=== PATIENT | female | born 1940 | race Caucasian/White ===

== ENCOUNTER 2017-08-21 09:16 | Emergency (ER) | payer MEDICARE, MEDICAID ==
[2017-08-21] MEDS: ONDANSETRON 4 MG ORAL DISINTEGRATING TAB (S0181) PO (10:18)
[2017-08-21] MEDS: NORCO, ANEXSIA 5/325MG TABLET (HYDROcodone/ACETAMINOPHEN) PO (10:18)
== END 2017-08-21 12:10 | disposition home or self-care (01) ==
LOC: M ED 09:16
DX: S40.011A Contusion of right shoulder, initial encounter (principal); S20.111A Abrasion of breast, right breast, initial encounter; S40.021A Contusion of right upper arm, initial encounter; X58.XXXA Exposure to other specified factors, initial encounter; Y92.480 Sidewalk as the place of occurrence of the external cause; Y93.9 Activity, unspecified; R91.1 Solitary pulmonary nodule; S43.101A Unspecified dislocation of right acromioclavicular joint, initial encounter; M25.711 Osteophyte, right shoulder; M25.811 Other specified joint disorders, right shoulder; E11.9 Type 2 diabetes mellitus without complications; I10 Essential (primary) hypertension; J44.9 Chronic obstructive pulmonary disease, unspecified; F17.200 Nicotine dependence, unspecified, uncomplicated; Z79.82 Long term (current) use of aspirin; Z79.84 Long term (current) use of oral hypoglycemic drugs; Z79.899 Other long term (current) drug therapy; Z88.0 Allergy status to penicillin
CPT/HCPCS: 71046

== ENCOUNTER → 2019-03-02 | Outpatient (REF) | payer MEDICARE, MEDICAID ==
[~2019-03-02] MED LIST: AMIT25TA PO; AMLO5TAB6 PO; ASPI1TAB15 PO; ATEN100T PO; ATEN100T7 PO; AZIT500T5 PO; B-122500 PO; GLIP5TAB20 PO; HYDR-3715 PO; LEVO125T4 PO; LEVO250T12 PO; LISI40TA PO; METF850T4 PO; THEO1CAP2 PO; THEO400T4 PO; XARE15TA PO
== END ==
LOC: M SFHCPLAZ 13:59
PROVIDERS: ATTEND Family Medicine
DX: E11.9 Type 2 diabetes mellitus without complications (principal); E03.9 Hypothyroidism, unspecified; I10 Essential (primary) hypertension; Z53.8 Procedure and treatment not carried out for other reasons

== ENCOUNTER 2019-04-30 17:44 | Inpatient (IN) | payer MEDICARE, MEDICAID ==
[~2019-04-30] VITALS: Ht 167.6 cm; Wt 75.7 kg
[2019-04-30] MEDS: HumaLOG INSULIN (NovoLOG) PER UNIT SC SCH (01:45)
[~2019-04-30 17:44] MED LIST changes: -AMIT25TA PO; -AMLO5TAB6 PO; -ATEN100T PO; -AZIT500T5 PO; -B-122500 PO; -LEVO250T12 PO; -THEO1CAP2 PO; -THEO400T4 PO; -XARE15TA PO
[2019-04-30] MEDS ORDERED: NS 1,000 ML IV ONE (19:45)
[2019-04-30 19:52] LABS: BASO % 0.2 % (0.0-1.0); EOS % 0.3 % (0.0-3.0); HEMATOCRIT 35.5 % (36.0-47.0); LYMPH # 1.8 10^3/uL (1.5-5.0); MEAN CORPUSCULAR HEMOGLOBIN 34.8 pg (27.0-33.0); MEAN CORPUSCULAR HGB CONC 33.8 g/dl (32.0-36.5); MEAN CORPUSCULAR VOLUME 102.9 fl (80.0-96.0); MONO # 1.3 10^3/uL (0.0-0.8); MONO % 12.7 % (0.0-5.0); NEUTROPHILS # 7.3 10^3/uL (1.5-8.5); NEUTROPHILS % 68.7 % (36.0-66.0); PLATELET COUNT, AUTOMATED 364 10^3/uL (150-450); RED BLOOD COUNT 3.45 10^6/uL (4.00-5.40); WHITE BLOOD COUNT 10.6 10^3/uL (4.0-10.0)
[2019-04-30 20:20] LABS: ALBUMIN 3.9 GM/DL (3.2-5.2); ALT/SGPT 22 U/L (12-78); BILIRUBIN,TOTAL 0.8 MG/DL (0.2-1.0); BLOOD UREA NITROGEN 37 MG/DL (7-18); CALCIUM LEVEL 9.6 MG/DL (8.8-10.2); CARBON DIOXIDE LEVEL 26 MEQ/L (21-32); CHLORIDE LEVEL 98 MEQ/L (98-107); CK-MB VALUE MASS < 1.0 NG/ML (<3.6); CPK CREATINE PHOSPHOKINASE 23 U/L (26-192); FREE T4 1.55 NG/DL (0.76-1.46); GLOMERULAR FILTRATION RATE 33.3 (>39); GLUCOSE, FASTING 131 MG/DL (70-100); MAGNESIUM LEVEL 1.9 MG/DL (1.8-2.4); MB/CK RELATIVE INDEX 4.35 (< OR =4); POTASSIUM SERUM 5.1 MEQ/L (3.5-5.1); SODIUM LEVEL 134 MEQ/L (136-145); THYROID STIMULATING HORMONE 0.909 uIU/ML (0.358-3.740); TOTAL PROTEIN 7.8 GM/DL (6.4-8.2); TROPONIN I < 0.02 NG/ML (< 0.10)
[2019-04-30 21:01] LABS: INR 1.09; PROTHROMBIN TIME 13.8 SECONDS (11.8-14.0)
[2019-04-30 21:02] LABS: PARTIAL THROMBOPLASTIN TIME 29.4 SECONDS (25.0-38.4)
--- NOTE | 2019-04-30 21:34 | ECGEPIP ---
[facility] - ED Test Date: 2019-04-30 Pat Name: APRYL CANCINO Department: Room: - Gender: Female [employer] Tender: ct : 1940 Requested By: Rohit Villalobos Order Number: [id number] Reading MD: Apryl Nelson Measurements Intervals [place] Rate: 62 P: 48 KS: 155 QRS: 5 QRSD: 91 T: 73 QT: 400 QTc: 408 Interpretive Statements SINUS RHYTHM NSTTW abnormalities NO PRIOR Electronically Signed on 04-30-2019 21:34:26 EDT by Apryl Nelson
[2019-04-30] MEDS ORDERED: ISOVUE-370 76% 100ML VIAL (Q9967) As Ordered ONE (21:45)
--- NOTE | 2019-04-30 22:29 | REPVR ---
PROCEDURE INFORMATION: Exam: CT Chest With Contrast Exam date and time: 04/30/2019 10:05 PM Clinical history: 79 years old, female; Abnormal findings; Abnormal radiologic exam of lung or chest; Additional info: F/u on lung mass TECHNIQUE: Imaging protocol: Computed tomography of the chest with intravenous contrast. 3D rendering: MIP reconstructed images were created and reviewed. Radiation optimization: All CT scans at this facility use at least one of these dose optimization techniques: automated exposure control; mA and/or kV adjustment per patient size (includes targeted exams where dose is matched to clinical indication); or iterative reconstruction. Contrast material: ISOVUE 370; Contrast volume: 75 ml; Contrast route: IV; COMPARISON: CR Chest, 2 view PA, Lat 04/30/2019 7:46 PM FINDINGS: Lungs: There is a large mass in the left lower lobe superior segment extending from the posterior pleural surface to the hilum, measuring 4.7 x 7.6 x 4.0 cm. Subcarinal katherin mass measures approximately 5.6 x 2.9 cm. Pleural space: Unremarkable. No pneumothorax. No pleural effusion. Heart: Unremarkable. No cardiomegaly. No pericardial effusion. Mediastinum: Multiple mediastinal lymph nodes. Pulmonary arteries: The left lung mass encases the right lower lobe pulmonary artery causing a near occlusive stenosis of the vessel. Aorta: Unremarkable. No aortic aneurysm. Lymph nodes: Extensive mediastinal and and bilateral hilar adenopathy. The largest superior mediastinal lymph node on the right measures 4.0 cm. Multiple additional pretracheal lymph nodes. Largest right hilar node measures 2.2 cm. The pulmonary mass is not clearly separable from many of the left hilar nodes. Bones/joints: Unremarkable. No acute fracture. Soft tissues: Irregular 1.6 x 1.7 cm mass in the left breast at 3-4:00, 4 cm from the nipple. IMPRESSION: 1. Large left lower lobe mass with extensive mediastinal and hilar adenopathy. 2. Lung mass encases the left lower lobe primary artery causing near complete occlusion of the vessel. 3. Incidental mass in the left breast is nonspecific. Consider correlation with diagnostic mammogram and breast ultrasound. Electronically signed by: Akash Caballero On 04/30/2019 22:28:49 PM
[2019-05-01 00:45] VITALS: BP 146/62
--- NOTE | 2019-05-01 00:55 | HPEPDOC ---
[facility] Medical History & Physical Date of Admission May 01, 2019 Date of Service: May 01, 2019 Primary Care Physician: SIRI CHAUDHARY DO Attending Physician: ALECIA SANTORO MD History and Physical CHIEF COMPLAINT: Dizziness HISTORY OF PRESENT ILLNESS: This is a 79-year-old female who presents with several months of ongoing fatigue, dizziness, weakness, nausea and vomiting. She has also had an ache in February of last year following upper URI, a raspy voice, without dysphonia, or dysphagia. She also noticed that she had the inability to taste food which led to her decline in appetite, a decline in fluid intake, and according to her a 15 pound weight loss since March. She also admits to ongoing productive cough during this time period, chills, and night sweats. After her ears were irrigated and cleaned out in the ED,she started feeling slightly better. She was also given fluids in the ED due to dehydration. ROS CONSTITUTIONAL: No fevers, denies chills, denies weight loss, denies lethargy HEENT: No rhinorrhea, no itchy eyes, no congesion, CARDIOVASCULAR: No murmurs no palpitations and arrhythmias RESPIRATORY: Not cough, No SOB, no issues to report GASTROINTESTINAL: No nausea, no vomiting, no difficulty swallowing, no pain with eating, no diarrhea HEMATOLOGICAL: No bleeding GENITOURINARY:No Issues HEMATOLOGIC/LYMPHATIC: No swelling PAST MEDICAL HISTORY: Hypothyroidism, jbs-xypvvxx-jzsrqkexg diabetes, hypertension, chronic tobacco use, PAST SURGICAL HISTORY: Right arm fracture, left arm pressure, hysterectomy at age 28, regular.. SOCIAL HISTORY: Lives by herself, reports smoking 1-2 pack of cigarettes per day since the age of 15. Denies alcohol use, denies any drug use. FAMILY HISTORY: Noncontributory. Due to his end-stage ALLERGIES: Please see below. PE VITALS: See Below GENERAL APPEARANCE: Alert no acute distress. Irritated 3 SKIN: Warm, well perfused ENT: Tympanic membrane difficult to visualize due to excessive wax, no erythema noted, no purulent drainage, no pain on tragus LUNGS: Clear to auscultation bilaterally. HEART: Normal S1, S2. No murmurs, no rubs, no gallops ABDOMEN: Soft. No masses. Bowel sounds are present EXTREMITIES: Moves all extremities equally. No gross deformities. PULSES: 2+ upper and lower extremity LABORATORY DATA: See below. IMAGING: Chest Xray: "Mass versus pneumonia in left lower" CT of the chest: "IMPRESSION: 1. Large left lower lobe mass with extensive mediastinal and hilar adenopathy. 2. Lung mass encases the left lower lobe primary artery causing near complete occlusion of the vessel. 3. Incidental mass in the left breast is nonspecific. Consider correlation with diagnostic mammogram and breast ultrasound" MICROBIOLOGY: Please see below. ASSESSMENT/PLAN: This is 69-year-old female with a past medical history of hypothyroidism, jnn-dhzrvby-eavisrens diabetes, chronic hypertension, and tobacco use, who will be admitted for evaluation of dizziness / near syncope. 1. Dizziness / Near syncopal episode -likely due to dehydration in the setting of decreased poor appetite, -Orthostatics negative -continue with IVF -PT, OT for weakness 2. Acute on chronic kidney injury stage 3 -Hold lisinopril & metformin due to kidney injury -IV fluids 3.Pulmonary mass -Differential diagnosis include adenocarcinoma, squamous cell carcinoma, unlikely to be TB -supplemental O2 -she will require a bronchoscopy and biopsy the day time team can decide if pulm consult is warranted this admission 4.Incidental breast mass -Can follow up as outpatient with mammogram 5.Chronic Hypertension -Currently holding lisinopril 6.Diabetes -Hold metformin & glipizide -monitor fasting blood glucose with before meals and at bedtime coverage 7.Hypothyroidism -Continue home medication 8.Ear Pain -Unlikely to be infectious, we'll continue to monitor. 9. Tobacco Abuse -Reported an extensive smoking history -Smoking cessation provided smoking cessation provided DVT prophylaxis with Lovenox Vital Signs Vital Signs Date Time Temp Pulse Resp B/P (MAP) Pulse Ox O2 Delivery O2 Flow Rate FiO2 04/30/19 22:05 97.7 73 18 124/65 (84) 98 Room Air Laboratory Data Labs 24H Laboratory Tests 2 04/30/19 19:23: Urine Color [place], Urine Appearance HAZY, Urine pH 5.0, Urine Specific [place] 1.021, Urine Protein 1+H, Urine Glucose (UA) NEGATIVE, Urine Ketones NEGATIVE, Urine Blood 1+H, Urine Nitrite NEGATIVE, Urine Bilirubin 1+H, Urine Urobilinogen 4.0H, Urine Leukocyte Esterase TRACEH, Urine WBC (Auto) 4H, Urine RBC (Auto) 11H, Urine Hyaline Casts (Auto) 25, Urine Bacteria (Auto) NEGATIVE, Urine Sq uamous Epithelial Cells 5, Urine Transitional Epithelial Cells 1, Urine Mucus (Auto) SMALL, Urine Sperm (Auto) 04/30/19 19:25: Prothrombin Time 13.8, Prothromb Time International Ratio 1.09, Activated Partial Thromboplast Time 29.4 04/30/19 19:30: Immature Granulocyte % (Auto) 1.1, Neutrophils (%) (Auto) 68.7H, Lymphocytes (%) (Auto) 17.0L, Monocytes (%) (Auto) 12.7H, Eosinophils (%) (Auto) 0.3, Basophils (%) (Auto) 0.2, Neutrophils # (Auto) 7.3, Lymphocytes # (Auto) 1.8, Monocytes # (Auto) 1.3H, Eosinophils # (Auto) 0.0, Basophils # (Auto) 0.0, Nucleated Red Blood Cells % (auto) 0.0, Anion Gap 10, Glomerular Filtration Rate 33.3L, Calcium Level 9.6, Magnesium Level 1.9, Total Bilirubin 0.8, Aspartate Amino Transf (AST/SGOT) 38H, Alanine Aminotransferase (ALT/SGPT) 22, Alkaline Phosphatase 85, Total Creatine Kinase 23L, Creatine Kinase MB < 1.0, Creatine Kinase MB Relative Index 4.35H, Troponin I < 0.02, Total Protein 7.8, Albumin 3.9, Albumin/Globulin Ratio 1.00, Thyroid Stimulating Hormone (TSH) 0.909, Free Thyroxine 1.55H CBC/BMP Laboratory Tests 04/30/19 19:30 Microbiology Microbiology 04/30/19 Urine Culture, Received Pending Home Medications Scheduled Atenolol/Chlorthalidone (Atenolol-Chlorthalidone 100-25) 1 Tab Tab, 1 TAB PO SIXTO LY Glipizide (Glipizide ER) 5 Mg Tab, 5 MG PO DAILY Levothyroxine Sodium (Levothyroxine Sodium) 125 Mcg Tab, 125 MCG PO DAILY Lisinopril (Lisinopril) 40 Mg Tab, 40 MG PO DAILY Metformin HCl (Metformin HCl) 850 Mg Tab, 850 MG PO BID Allergies Coded Allergies: Penicillins (Verified Allergy, Unknown, 04/30/19) and cross reactors lizy (Verified Allergy, Unknown, 04/30/19) spice, very ill with swelling A-FIB/CHADSVASC A-FIB History Current/History of A-Fib/PAF?: No Age/Risk Factor Scoring CHADSVASC: CHADSVASC Response (Comments) Value Age Risk Factor Age 65-74 years old 1 Hx of CHF No 0 Hx of HTN Yes 1 Hx of Diabetes Yes 1 Total 3 GME ATTESTATION GME ATTESTATION My faculty preceptor for this patient encounter was physically present during the encounter and was fully available. All aspects of the patient interview, examination, medical decision making process, and medical care plan development were reviewed and approved by the faculty preceptor. The faculty preceptor is aware and concurs with the plan as stated in the body of this note and will attest to such by his/her cosignature. ATTENDING NOTE I examined Mr. Lindsay 11:30 PM and discussed case with Dr. Oseguera and carmine jason with his findings as documented above. 1 Acute Renal Failure likely prerenal azotemia /dehydration due to poor appetite Plan: Is/Os, daily weights / Renal diet / f/u ulytes for FENa or FEUrea, renal US, IVF 2. Lung mass. Possibly due to pneumonia versus cancer. Plan: Follow up CT of the chest. 3. Abnormal UA Patient is asymptomatic. Plan: Will not treat asymptomatic bacteria MARICHUY OSEGUERA DO Apr 30, 2019 23:31 ALECIA SANTORO MD May 01, 2019 00:55
[2019-05-01] MEDS ORDERED: GLUCOSE 4 GM CHEW TABLET PO PRN (01:00)
[2019-05-01] MEDS ORDERED: GLUCAGON FOR INJ 1 MG VIAL (J1610) SC PRN (01:00)
[2019-05-01] MEDS ORDERED: NS 1,000 ML IV SCH (01:00)
[2019-05-01] MEDS ORDERED: DEXTROSE 50% 50 ML SYRINGE IV PRN (01:00)
[2019-05-01 06:00] VITALS: BP 155/75
[2019-05-01 07:16] LABS: HEMOGLOBIN A1c 5.9 %
[2019-05-01 07:25] LABS: ALBUMIN 3.1 GM/DL (3.2-5.2); BILIRUBIN,TOTAL 0.6 MG/DL (0.2-1.0); CREATININE FOR GFR 1.02 MG/DL (0.55-1.30); GLOMERULAR FILTRATION RATE 55.9 (>39); POTASSIUM SERUM 3.8 MEQ/L (3.5-5.1); TOTAL PROTEIN 7.3 GM/DL (6.4-8.2)
[2019-05-01] MEDS: HumaLOG INSULIN (NovoLOG) PER UNIT SC SCH ×4 (07:30→20:49)
[2019-05-01] MEDS: LEVOTHYROXINE 125MCG TABLET (0.125MG) PO SCH (08:04)
[2019-05-01] MEDS: ENOXAPARIN 30 MG/0.3 ML SYR (J1650) SC SCH (08:04)
[2019-05-01] MEDS: glipiZIDE XL 5 MG TABCR PO SCH (08:04)
--- NOTE | 2019-05-01 08:05 | REP ---
CHEST, TWO VIEWS: Two views of the chest are performed and compared with prior study of 08/21/2017. Masslike consolidation is seen in the left upper lobe having a diameter of approximately 5 cm. I suspect adjacent left hilar adenopathy. There is widening of the mediastinum compatible with mediastinal adenopathy. The heart is normal in size. There are degenerative changes of the spine. IMPRESSION: Mass or consolidation left upper lobe with a diameter of approximately 5 cm. There appears to be adjacent left hilar adenopathy as well as mediastinal adenopathy. Electronically Signed by Gary Rudd MD 05/01/2019 03:40 P
[2019-05-01] MEDS: ATENOLOL 50 MG TAB PO SCH (08:06)
--- NOTE | 2019-05-01 11:05 | IPNPDOC ---
Subjective Date Seen The patient was seen on 05/01/19. Subjective Chief Complaint/HPI Says feels better this morning. Her appetite is better and said she is going to order breakfast, no dizziness or light headedness. I discussed with the pateint about the CT scan findings that she has lung cancer and will need a biopsy of the mass to find out what kind it is so we will need to do a biopsy with dayron mass next week. No fever or chills, says has chronic cough. No hemoptysis. Has been a heavy smoker for any years. Objective Physical Examination General Exam: Positive: Alert, Cooperative, No Acute Distress Eye Exam: Positive: PERRLA, Conjunctiva & lids normal, EOMI; Negative: Sclera icteric ENT Exam: Positive: Atraumatic, Mucous membr. moist/pink, Pharynx Normal Neck Exam: Positive: Supple; Negative: JVD, thyromegaly Chest Exam: Positive: Clear to auscultation, Normal air movement Heart Exam: Positive: Rate Normal, Regular Rhythm, Normal S1, Normal S2; Negative: Murmurs, Rubs Abdomen Exam: Positive: Normal bowel sounds, Soft; Negative: Tenderness, Hepatospenomegaly Extremity Exam: Positive: Normal pulses; Negative: Clubbing, Cyanosis, Edema Skin Exam: Positive: Nl turgor and temperature; Negative: Rash, Breakdown Assessment /Plan Assessment A 69-year-old female presents with vague complaints of dizziness, weakness, nausea, vomiting, presyncopal episodes, 15 pound weight loss, decreased appetite, for about 2 months. She was found to have dehydration, acute on chronic kidney injury and a lung mass/ consolidation on CXR. On CT chest there was a Large left lower lobe mass with extensive mediastinal and hilar adenopathy. Lung mass encases the left lower lobe primary artery causing near complete occlusion of the vessel. Incidental mass in the left breast is nonspecific. Radiologist suggested mammography. Presyncopal episodes probably due to dehydration ? Lobar pulmonary vascular occlusion causing any episodes of hypoxia or not. Lung mass looks malignant with encroachment of left lower lobe primary pulmonary artery with near occlusion of the vessel with hilar lymphadenopathy will arrange for CT guided biopsy next week. will also get CT abdomen and pelvis with contrast for staging purposes said last smoked 2 weeks ago. will consult cancer navigation nurse. Incidental breast mass will need follow up TIMA due to poor oral intake and dehydration improved with hydration. Hold lisinopril due to kidney injury, hold metformin due to kidney injury Hypertension will continue atenolol Currently holding lisinopril and chlorthalidone Diabetes Hold metformin due to kidney injury, fasting blood glucose with before meals and at bedtime coverage continue glipizide Hypothyroidism Continue home medication Weakness and dizziness. PT, OT Plan/VTE VTE Prophylaxis Ordered?: Yes VS, I&O, 24H, Fishbone Vital Signs/I&O Vital Signs Date Time Temp Pulse Resp B/P (MAP) Pulse Ox O2 Delivery O2 Flow Rate FiO2 05/01/19 08:06 68 155/73 05/01/19 06:00 97.4 18 99 Room Air I&O- Last 24 Hours up to 6 AM 05/01/19 06:00 Intake Total 1120 ml Output Total 500 ml Balance 620 ml Laboratory Data 24H LABS Laboratory Tests 2 04/30/19 19:23: Urine Color [place], Urine Appearance HAZY, Urine pH 5.0, Urine Specific [place] 1.021, Urine Protein 1+H, Urine Glucose (UA) NEGATIVE, Urine Ketones NEGATIVE, Urine Blood 1+H, Urine Nitrite NEGATIVE, Urine Bilirubin 1+H, Urine Urobilinogen 4.0H, Urine Leukocyte Esterase TRACEH, Urine WBC (Auto) 4H, Urine RBC (Auto) 11H, Urine Hyaline Casts (Auto) 25, Urine Bacteria (Auto) NEGATIVE, Urine [place] us Epithelial Cells 5, Urine Transitional Epithelial Cells 1, Urine Mucus (Auto) SMALL, Urine Sperm (Auto) 04/30/19 19:25: Prothrombin Time 13.8, Prothromb Time International Ratio 1.09, Activated Partial Thromboplast Time 29.4 04/30/19 19:30: Immature Granulocyte % (Auto) 1.1, Neutrophils (%) (Auto) 68.7H, Lymphocytes (%) (Auto) 17.0L, Monocytes (%) (Auto) 12.7H, Eosinophils (%) (Auto) 0.3, Basophils (%) (Auto) 0.2, Neutrophils # (Auto) 7.3, Lymphocytes # (Auto) 1.8, Monocytes # (Auto) 1.3H, Eosinophils # (Auto) 0.0, Basophils # (Auto) 0.0, Nucleated Red Blood Cells % (auto) 0.0, Anion Gap 10, Glomerular Filtration Rate 33.3L, Calcium Level 9.6, Magnesium Level 1.9, Total Bilirubin 0.8, Aspartate Amino Transf (AST/SGOT) 38H, Alanine Aminotransferase (ALT/SGPT) 22, Alkaline Phosphatase 85, Total Creatine Kinase 23L, Creatine Kinase MB < 1.0, Creatine Kinase MB Relative Index 4.35H, Troponin I < 0.02, Total Protein 7.8, Albumin 3.9, Albumin/Globulin Ratio 1.00, Thyroid Stimulating Hormone (TSH) 0.909, Free Thyroxine 1.55H 05/01/19 06:35: Anion Gap 6L, Glomerular Filtration Rate 55.9, Calcium Level 9.0, Total Bilirubi n 0.6, Aspartate Amino Transf (AST/SGOT) 37, Alanine Aminotransferase (ALT/SGPT) 19, Alkaline Phosphatase 77, Total Protein 7.3, Albumin 3.1#L, Albumin/Globulin Ratio 0.74L, Estimated Mean Plasma Glucose 123H, Hemoglobin A1c 5.9 CBC/BMP Laboratory Tests 04/30/19 19:30 05/01/19 06:35 Microbiology Microbiology 04/30/19 Urine Culture, Received Pending MADDY BARRERA MD May 01, 2019 11:05
[2019-05-01 14:00] VITALS: BP 119/61
[2019-05-01 22:00] VITALS: BP 125/65
[2019-05-02 06:00] VITALS: BP 124/60
[2019-05-02 06:30] LABS: BASO % 0.4 % (0.0-1.0); EOS # 0.2 10^3/uL (0.0-0.5); EOS % 1.9 % (0.0-3.0); HEMATOCRIT 33.3 % (36.0-47.0); HEMOGLOBIN 11.1 g/dl (12.0-15.5); LYMPH # 2.6 10^3/uL (1.5-5.0); LYMPH % 28.2 % (24.0-44.0); MEAN CORPUSCULAR HEMOGLOBIN 34.2 pg (27.0-33.0); MEAN CORPUSCULAR HGB CONC 33.3 g/dl (32.0-36.5); MEAN CORPUSCULAR VOLUME 102.5 fl (80.0-96.0); MONO # 1.2 10^3/uL (0.0-0.8); MONO % 13.1 % (0.0-5.0); NEUTROPHILS # 5.1 10^3/uL (1.5-8.5); NEUTROPHILS % 55.5 % (36.0-66.0); PLATELET COUNT, AUTOMATED 326 10^3/uL (150-450); RED BLOOD COUNT 3.25 10^6/uL (4.00-5.40); WHITE BLOOD COUNT 9.1 10^3/uL (4.0-10.0)
[2019-05-02 06:53] LABS: BLOOD UREA NITROGEN 20 MG/DL (7-18); CALCIUM LEVEL 9.3 MG/DL (8.8-10.2); CARBON DIOXIDE LEVEL 28 MEQ/L (21-32); CHLORIDE LEVEL 102 MEQ/L (98-107); CREATININE FOR GFR 0.87 MG/DL (0.55-1.30); GLOMERULAR FILTRATION RATE > 60.0 (>39); GLUCOSE, FASTING 133 MG/DL (70-100); SODIUM LEVEL 137 MEQ/L (136-145)
[2019-05-02] MEDS: HumaLOG INSULIN (NovoLOG) PER UNIT SC SCH ×4 (08:07→20:45)
[2019-05-02] MEDS: ENOXAPARIN 30 MG/0.3 ML SYR (J1650) SC SCH (08:08)
[2019-05-02] MEDS: glipiZIDE XL 5 MG TABCR PO SCH (08:08)
[2019-05-02] MEDS: LEVOTHYROXINE 125MCG TABLET (0.125MG) PO SCH (08:08)
[2019-05-02] MEDS: ATENOLOL 50 MG TAB PO SCH (08:16)
--- NOTE | 2019-05-02 08:39 | IPNPDOC ---
Subjective Date Seen The patient was seen on 05/02/19. Subjective Chief Complaint/HPI Feeling much better this morning. good appetite, wants to go home. Said she would prefer to do the biopsy as an outpatient. No fever r chills, no chest pain or SOB. COntinues to complain of right blocked ear and partial blocking also on the left. Objective Physical Examination General Exam: Positive: Alert, Cooperative, No Acute Distress Eye Exam: Positive: PERRLA, Conjunctiva & lids normal, EOMI; Negative: Sclera icteric ENT Exam: Positive: Atraumatic, Mucous membr. moist/pink, Pharynx Normal Neck Exam: Positive: Supple; Negative: JVD, thyromegaly Chest Exam: Positive: Clear to auscultation, Normal air movement Heart Exam: Positive: Rate Normal, Regular Rhythm, Normal S1, Normal S2; Negative: Murmurs, Rubs Abdomen Exam: Positive: Normal bowel sounds, Soft; Negative: Tenderness, Hepatospenomegaly Extremity Exam: Positive: Normal pulses; Negative: Clubbing, Cyanosis, Edema Skin Exam: Positive: Nl turgor and temperature; Negative: Rash, Breakdown Assessment /Plan Assessment A 69-year-old female presents with vague complaints of dizziness, weakness, nausea, vomiting, presyncopal episodes, 15 pound weight loss, decreased appetite, for about 2 months. She was found to have dehydration, acute on chronic kidney injury and a lung mass/ consolidation on CXR. On CT chest there was a Large left lower lobe mass with extensive mediastinal and hilar adenopathy. Lung mass encases the left lower lobe primary artery causing near complete occlusion of the vessel. Incidental mass in the left breast is nonspecific. Radiologist suggested mammography. Presyncopal episodes probably due to dehydration ? Lobar pulmonary vascular occlusion causing any episodes of hypoxia or not. Lung mass looks malignant with encroachment of left lower lobe primary pulmonary artery with near occlusion of the vessel with hilar lymphadenopathy will arrange for CT guided biopsy next week. will also get CT abdomen and pelvis with contrast for staging purposes said last smoked 2 weeks ago. will consult cancer navigation nurse. Incidental breast mass will need follow up TIMA due to poor oral intake and dehydration improved with hydration. Hold lisinopril due to kidney injury, hold metformin due to kidney injury Hypertension will continue atenolol Currently holding lisinopril and chlorthalidone Diabetes Hold metformin due to kidney injury, fasting blood glucose with before meals and at bedtime coverage continue glipizide Hypothyroidism Continue home medication Weakness and dizziness. PT, OT Plan/VTE VTE Prophylaxis Ordered?: Yes VS, I&O, 24H, Fishbone Vital Signs/I&O Vital Signs Date Time Temp Pulse Resp B/P (MAP) Pulse Ox O2 Delivery O2 Flow Rate FiO2 05/02/19 08:16 76 128/68 05/02/19 06:00 97.8 18 97 Room Air I&O- Last 24 Hours up to 6 AM 05/02/19 06:00 Intake Total 1380 ml Output Total 1650 ml Balance -270 ml Laboratory Data 24H LABS Laboratory Tests 2 05/01/19 11:40: Bedside Glucose (Misc Panel) 146H 05/01/19 16:31: Bedside Glucose (Misc Panel) 98 05/01/19 20:47: Bedside Glucose (Misc Panel) 168H 05/02/19 05:51: Immature Granulocyte % (Auto) 0.9, Neutrophils (%) (Auto) 55.5, Lymphocytes (%) (Auto) 28.2, Monocytes (%) (Auto) 13.1H, Eosinophils (%) (Auto) 1.9, Basophils (%) (Auto) 0.4, Neutrophils # (Auto) 5.1, Lymphocytes # (Auto) 2.6, Monocytes # (Auto) 1.2H, Eosinophils # (Auto) 0.2, Basophils # (Auto) 0.0, Nucleated Red Blood Cells % (auto) 0.0, Anion Gap 7L, Glomerular Filtration Rate > 60.0, Calcium Level 9.3 CBC/BMP Laboratory Tests 05/02/19 05:51 Microbiology Microbiology 04/30/19 Urine Culture - Final, Complete Klebsiella Pneumoniae MADDY BARRERA MD May 02, 2019 08:39
[2019-05-02] MEDS: GASTROGRAFIN SOLUTION 30ML PO SCH (10:05)
[2019-05-02] MEDS ORDERED: ISOVUE-370 76% 100ML VIAL (Q9967) As Ordered ONE (11:45)
--- NOTE | 2019-05-02 13:26 | REP ---
CT ABDOMEN AND PELVIS WITH IV AND ORAL CONTRAST: TECHNIQUE: Axial contrast enhanced images from the lung bases to the pubic symphysis using 100 mL Isovue 370 intravenous contrast material with multiplanar reformations. Visualized lung bases are clear. Liver demonstrates no mass. Gallbladder is unremarkable. Spleen is normal in size with no intrinsic abnormality. No adrenal mass is seen. Pancreas demonstrates no mass. There is no biliary dilatation. There is no hydronephrosis bilaterally. There is an exophytic nodule of the lower pole of left kidney medially measuring 2.1 cm in diameter. Density measurements are greater than that of water, but it does appear to be cystic. Recommend ultrasound to further evaluate. There are moderate atherosclerotic calcifications of the abdominal aorta without aneurysm. No enlarged lymph nodes are seen in the abdomen or pelvis. No bowel wall thickening is seen. There is sigmoid diverticulosis without acute diverticulitis. The appendix is normal. No pelvic mass is seen. The patient appears to have had a hysterectomy. Urinary bladder is mildly distended and grossly unremarkable. There are diffuse degenerative changes of the spine with degenerative changes also noted of the hips. IMPRESSION: No adenopathy. No liver or adrenal mass. There is a low density cystic nodule in the lower pole of the left kidney. I would recommend further evaluation by ultrasound to confirm this does indeed represent a simple cyst. Otherwise no evidence of metastatic disease in the abdomen or pelvis. Electronically Signed by Gary Rudd MD 05/02/2019 02:39 P
[2019-05-02 14:09] VITALS: BP 138/64
[2019-05-02 22:00] VITALS: BP 140/66
[2019-05-03 06:00] VITALS: BP 133/69
[2019-05-03 06:27] LABS: BASO % 0.5 % (0.0-1.0); EOS # 0.1 10^3/uL (0.0-0.5); HEMATOCRIT 30.8 % (36.0-47.0); HEMOGLOBIN 10.6 g/dl (12.0-15.5); LYMPH # 1.8 10^3/uL (1.5-5.0); LYMPH % 20.8 % (24.0-44.0); MEAN CORPUSCULAR HEMOGLOBIN 35.3 pg (27.0-33.0); MEAN CORPUSCULAR HGB CONC 34.4 g/dl (32.0-36.5); MEAN CORPUSCULAR VOLUME 102.7 fl (80.0-96.0); MONO # 1.4 10^3/uL (0.0-0.8); MONO % 15.9 % (0.0-5.0); NEUTROPHILS # 5.3 10^3/uL (1.5-8.5); PLATELET COUNT, AUTOMATED 279 10^3/uL (150-450); WHITE BLOOD COUNT 8.7 10^3/uL (4.0-10.0)
[2019-05-03 06:50] LABS: BLOOD UREA NITROGEN 14 MG/DL (7-18); CALCIUM LEVEL 8.9 MG/DL (8.8-10.2); CARBON DIOXIDE LEVEL 26 MEQ/L (21-32); CHLORIDE LEVEL 99 MEQ/L (98-107); CREATININE FOR GFR 0.92 MG/DL (0.55-1.30); GLOMERULAR FILTRATION RATE > 60.0 (>39); GLUCOSE, FASTING 177 MG/DL (70-100); POTASSIUM SERUM 3.8 MEQ/L (3.5-5.1); SODIUM LEVEL 134 MEQ/L (136-145)
[2019-05-03 07:47] VITALS: BP 133/69
[2019-05-03] MEDS: LEVOTHYROXINE 125MCG TABLET (0.125MG) PO SCH (07:47)
[2019-05-03] MEDS: ENOXAPARIN 30 MG/0.3 ML SYR (J1650) SC SCH (07:47)
[2019-05-03] MEDS: glipiZIDE XL 5 MG TABCR PO SCH (07:47)
[2019-05-03] MEDS: ATENOLOL 50 MG TAB PO SCH (07:47)
[2019-05-03] MEDS: HumaLOG INSULIN (NovoLOG) PER UNIT SC SCH ×2 (07:48→12:16)
--- NOTE | 2019-05-03 10:50 | DS.PDOC ---
Discharge Summary General Date of Admission Apr 30, 2019 at 21:34 Date of Discharge 05/03/19 Discharge Summary PROCEDURES PERFORMED DURING STAY: [None]. DISCHARGE DIAGNOSES: Malignant Lung mass scheduled for Biopsy. Impacted wax Tima Dehydration. Breast mass needs mammography Diabetes Hypertension Hypothyroid. COMPLICATIONS/CHIEF COMPLAINT: Tima (Acute Kidney Injury),Lung Mass. HISTORY OF PRESENT ILLNESS: See history and physical HOSPITAL COURSE: A 69-year-old female presents with vague complaints of dizziness, weakness, nausea, vomiting, presyncopal episodes, 15 pound weight loss, decreased appetite, for about 2 months. She was found to have dehydration, acute on chronic kidney injury and a lung mass/ consolidation on CXR. On CT chest there was a Large left lower lobe mass with extensive mediastinal and hilar adenopathy. Lung mass encases the left lower lobe primary artery causing near complete occlusion of the vessel. Incidental mass in the left breast is nonspecific. Radiologist suggested mammography. Presyncopal episodes probably due to dehydration ? Lobar pulmonary vascular occlusion causing any episodes of hypoxia or not. Lung mass looks malignant with encroachment of left lower lobe primary pulmonary artery with near occlusion of the vessel with hilar lymphadenopathy CT guided biopsy set up for 05/12/19 CT abdomen and pelvis with contrast negative said last smoked 2 weeks ago. consulted cancer navigation nurse. Incidental breast mass will need follow up mammography TIMA due to poor oral intake and dehydration on the back ground of lisinopril and metformin. improved with hydration. Hold lisinopril and metformin. due to kidney injury Hypertension will continue atenolol Currently stopped lisinopril and chlorthalidone Can be restarted in a week if needed at the pMDs discretion. Diabetes continue glipizide Hold metformin for 2 days before restarting as had contrast studies in hospital. Hypothyroidism Continue home medication Impacted wax bilateral irrigated int ED and seen by ENT. Weakness and dizziness. improved. DISCHARGE MEDICATIONS: Please see below. ALLERGIES: Please see below. PHYSICAL EXAMINATION ON DISCHARGE: VITAL SIGNS: Please see below. General Exam: Positive: Alert, Cooperative, No Acute Distress Eye Exam: Positive: PERRLA, Conjunctiva & lids normal, EOMI; Negative: Sclera icteric ENT Exam: Positive: Atraumatic, Mucous membr. moist/pink, Pharynx Normal Neck Exam: Positive: Supple; Negative: JVD, thyromegaly Chest Exam: Positive: Clear to auscultation, Normal air movement Heart Exam: Positive: Rate Normal, Regular Rhythm, Normal S1, Normal S2; Negative: Murmurs, Rubs Abdomen Exam: Positive: Normal bowel sounds, Soft; Negative: Tenderness, Hepatospenomegaly Extremity Exam: Positive: Normal pulses; Negative: Clubbing, Cyanosis, Edema Skin Exam: Positive: Nl turgor and temperature; Negative: Rash, Breakdown LABORATORY DATA: Please see below. ACTIVITY: [As tolerated]. DIET: Carb consistent DISCHARGE PLAN: Home DISPOSITION: . DISCHARGE INSTRUCTIONS: PMD in [address] guided left lung mass biopsy on 05/12/19 Needs referral for mammography. DISCHARGE CONDITION: [Stable]. TIME SPENT ON DISCHARGE: 35 minutes. Vital Signs/I&Os Vital Signs Date Time Temp Pulse Resp B/P (MAP) Pulse Ox O2 Delivery O2 Flow Rate FiO2 05/03/19 07:47 75 133/69 05/03/19 06:00 98.3 20 94 Room Air I&O- Last 24 Hours up to 6 AM 05/03/19 06:00 Intake Total 1680 ml Output Total 2700 ml Balance -1020 ml Laboratory Data Labs 24H Laboratory Tests 2 05/02/19 12:33: Bedside Glucose (Misc Panel) 230H 05/02/19 16:51: Bedside Glucose (Misc Panel) 125H 05/02/19 19:58: Bedside Glucose (Misc Panel) 153H 05/03/19 05:44: Immature Granulocyte % (Auto) 0.8, Neutrophils (%) (Auto) 61.0, Lymphocytes (%) (Auto) 20.8L, Monocytes (%) (Auto) 15.9H, Eosinophils (%) (Auto) 1.0, Basophils (%) (Auto) 0.5, Neutrophils # (Auto) 5.3, Lymphocytes # (Auto) 1.8, Monocytes # (Auto) 1.4H, Eosinophils # (Auto) 0.1, Basophils # (Auto) 0.0, Nucleated Red Blood Cells % (auto) 0.0, Anion Gap 9, Glomerular Filtration Rate > 60.0, Calcium Level 8.9 CBC/BMP Laboratory Tests 05/03/19 05:44 FSBS Laboratory Tests Test 05/02/19 12:33 05/02/19 16:51 05/02/19 19:58 Range/Units Bedside Glucose (Misc Panel) 230 125 153 83-110 MG/DL Microbiology Microbiology 04/30/19 Urine Culture - Final, Complete Klebsiella Pneumoniae Discharge Medications Scheduled Atenolol/Chlorthalidone (Atenolol-Chlorthalidone 100-25) 1 Tab Tab, 1 TAB PO DAILY, (Reported) Glipizide (Glipizide ER) 5 Mg Tab, 5 MG PO DAILY, (Reported) Levothyroxine Sodium (Levothyroxine Sodium) 125 Mcg Tab, 125 MCG PO DAILY, (Reported) Lisinopril (Lisinopril) 40 Mg Tab, 40 MG PO DAILY, (Reported) Metformin HCl (Metformin HCl) 850 Mg Tab, 850 MG PO BID, (Reported) Allergies Coded Allergies: Penicillins (Verified Allergy, Unknown, 04/30/19) and cross reactors lizy (Verified Allergy, Unknown, 04/30/19) spice, very ill with swelling MADDY BARRERA MD May 03, 2019 10:50
[2019-05-03] MEDS ORDERED: ATEN100T PO (12:06)
== END 2019-05-03 13:20 | disposition home or self-care (01) | DRG 684 ==
LOC: M ED 17:44 → M ED INP 21:34 → M MS5PR 05-01 00:42
PROVIDERS: ADMIT Internal Medicine; ATTEND Internal Medicine Nephrology
DX: N17.9 Acute kidney failure, unspecified (principal); E86.0 Dehydration; R91.8 Other nonspecific abnormal finding of lung field; N18.3 Chronic kidney disease, stage 3 (moderate); I12.9 Hypertensive chronic kidney disease with stage 1 through stage 4 chronic kidney disease, or unspecified chronic kidney disease; E03.9 Hypothyroidism, unspecified; E11.9 Type 2 diabetes mellitus without complications; N63.20 Unspecified lump in the left breast, unspecified quadrant; H61.23 Impacted cerumen, bilateral; Z79.899 Other long term (current) drug therapy; Z88.0 Allergy status to penicillin

== ENCOUNTER 2019-05-07 11:37 | Emergency (ER) | payer MEDICARE, MEDICAID ==
[~2019-05-07] VITALS: Ht 170.2 cm; Wt 75.9 kg
[~2019-05-07 11:37] MED LIST changes: +ATEN100T PO
[2019-05-07 12:06] LABS: BASO # 0.1 10^3/uL (0.0-0.2); BASO % 0.6 % (0.0-1.0); EOS # 0.1 10^3/uL (0.0-0.5); EOS % 0.8 % (0.0-3.0); HEMATOCRIT 30.9 % (36.0-47.0); HEMOGLOBIN 10.3 g/dl (12.0-15.5); LYMPH # 1.4 10^3/uL (1.5-5.0); LYMPH % 16.4 % (24.0-44.0); MEAN CORPUSCULAR HEMOGLOBIN 35.3 pg (27.0-33.0); MEAN CORPUSCULAR HGB CONC 33.3 g/dl (32.0-36.5); MEAN CORPUSCULAR VOLUME 105.8 fl (80.0-96.0); MONO # 1.1 10^3/uL (0.0-0.8); MONO % 13.2 % (0.0-5.0); NEUTROPHILS # 5.9 10^3/uL (1.5-8.5); NEUTROPHILS % 67.8 % (36.0-66.0); PLATELET COUNT, AUTOMATED 352 10^3/uL (150-450); RED BLOOD COUNT 2.92 10^6/uL (4.00-5.40); WHITE BLOOD COUNT 8.6 10^3/uL (4.0-10.0)
--- NOTE | 2019-05-07 12:19 | REP ---
CT brain: 05/07/2019. Indication: Syncope. Comparison: 12/15/2010. Technique: Unenhanced axial CT images of the brain were obtained from skull base to vertex. Findings: There is no acute intracranial hemorrhage, acute cortical infarction, mass effect, hydrocephalus or acute calvarial fracture. Small air fluid levels are noted within the left sphenoid sinus. Small left mastoid effusion is present. Impression: No acute intracranial process. Electronically Signed by Milo Tam DO 05/07/2019 12:11 P
[2019-05-07 12:44] LABS: BLOOD UREA NITROGEN 17 MG/DL (7-18); CARBON DIOXIDE LEVEL 25 MEQ/L (21-32); CHLORIDE LEVEL 103 MEQ/L (98-107); CK-MB VALUE MASS < 1.0 NG/ML (<3.6); CPK CREATINE PHOSPHOKINASE 28 U/L (26-192); CREATININE FOR GFR 1.04 MG/DL (0.55-1.30); GLOMERULAR FILTRATION RATE 54.7 (>39); GLUCOSE, FASTING 131 MG/DL (70-100); MB/CK RELATIVE INDEX 3.57 (< OR =4); POTASSIUM SERUM 4.5 MEQ/L (3.5-5.1); SODIUM LEVEL 136 MEQ/L (136-145); TROPONIN I < 0.02 NG/ML (< 0.10)
[2019-05-07] MEDS ORDERED: ISOVUE-370 76% 100ML VIAL (Q9967) As Ordered ONE (13:09)
--- NOTE | 2019-05-07 13:42 | REP ---
Clinical: Lung mass. Chest pain and syncope. Technique: Axial contrast enhanced images from the thoracic inlet to the upper abdomen with multiplanar re-formations using pulmonary embolus technique. 100 ml Isovue 370 intravenous contrast material administered without complication. Comparison: 04/30/2019. Findings: Satisfactory enhancement of the pulmonary vasculature is achieved. The large mass emanating from the left hilum into the left mid lung zone causes mass effect and encases portions of the left lower lobe pulmonary artery causing near complete collapse. No obvious pulmonary embolus is identified. Large mass extends to the subpleural left mid/upper lung zone and extensive mediastinal and hilar adenopathy is again identified and unchanged. Differential diagnosis includes lymphoma as well as primary lung carcinoma. No effusion. No obvious satellite lesions. The right hemithorax is relatively well aerated although right hilar adenopathy is identified. Thoracic aorta is without aneurysm or dissection and without significant mass effect. No cardiomegaly or pericardial effusion. Osseous structures demonstrate degenerative changes without focal abnormality. Impression: 1. Known large left lung mass extending from the hilum to the subpleural midlung zone along with extensive diffuse mediastinal and hilar adenopathy (left greater than right). Differential diagnosis includes lymphoma and primary lung carcinoma. Findings are unchanged from recent prior examination. 2. The second order left lower lobe pulmonary artery is nearly completely collapsed due to surrounding encasement from neoplasm/adenopathy but demonstrates satisfactory distal enhancement and there is no obvious pulmonary embolus. Electronically Signed by Avtar Hobbs MD 05/07/2019 01:34 P
[2019-05-07 14:41] VITALS: BP 131/95
--- NOTE | 2019-05-09 11:37 | ECGEPIP ---
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
== END 2019-05-07 14:45 | disposition home or self-care (01) ==
LOC: EDBD 11:37 → M ED 11:37
DX: R55 Syncope and collapse (principal); I28.8 Other diseases of pulmonary vessels; R91.8 Other nonspecific abnormal finding of lung field; R00.1 Bradycardia, unspecified; E11.9 Type 2 diabetes mellitus without complications; I10 Essential (primary) hypertension; J44.9 Chronic obstructive pulmonary disease, unspecified; F17.210 Nicotine dependence, cigarettes, uncomplicated; Z88.0 Allergy status to penicillin; Z91.018 Allergy to other foods; Z79.4 Long term (current) use of insulin; Z79.899 Other long term (current) drug therapy

== ENCOUNTER 2019-05-09 11:34 | Inpatient (IN) | payer MEDICARE, MEDICAID ==
[~2019-05-09] VITALS: Ht 170.2 cm; Wt 78.5 kg
--- NOTE | 2019-05-09 12:03 | ECGEPIP ---
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
--- NOTE | 2019-05-09 12:55 | REP ---
Clinical: Syncope. Technique: PA and lateral. Comparison: 04/30/2019. Findings: Mediastinum and cardiac silhouette are stable. Mass in the left mid lung zone is unchanged. Remainder of lung vigil are essentially well-aerated and clear. No effusion. No pneumothorax. Skeletal structures stable. Impression: Stable chest x-ray. Stable mass in the left mid lung zone. No new acute process Electronically Signed by Avtar Hobbs MD 05/09/2019 12:46 P
[2019-05-09 13:06] LABS: BASO % 0.5 % (0.0-1.0); EOS # 0.1 10^3/uL (0.0-0.5); EOS % 1.8 % (0.0-3.0); HEMATOCRIT 29.4 % (36.0-47.0); HEMOGLOBIN 9.7 g/dl (12.0-15.5); LYMPH # 1.6 10^3/uL (1.5-5.0); LYMPH % 20.7 % (24.0-44.0); MEAN CORPUSCULAR HEMOGLOBIN 34.6 pg (27.0-33.0); MONO # 0.7 10^3/uL (0.0-0.8); MONO % 8.9 % (0.0-5.0); NEUTROPHILS # 5.3 10^3/uL (1.5-8.5); NEUTROPHILS % 67.2 % (36.0-66.0); PLATELET COUNT, AUTOMATED 357 10^3/uL (150-450); WHITE BLOOD COUNT 7.8 10^3/uL (4.0-10.0)
[2019-05-09] MEDS ORDERED: NS 500 ML IV ONE (13:15)
[2019-05-09 13:23] LABS: INR 1.1; PROTHROMBIN TIME 13.9 SECONDS (11.8-14.0)
[2019-05-09 13:24] LABS: PARTIAL THROMBOPLASTIN TIME 29.8 SECONDS (25.0-38.4)
[2019-05-09 13:41] LABS: BLOOD UREA NITROGEN 17 MG/DL (7-18); CALCIUM LEVEL 8.6 MG/DL (8.8-10.2); CARBON DIOXIDE LEVEL 28 MEQ/L (21-32); CHLORIDE LEVEL 105 MEQ/L (98-107); CK-MB VALUE MASS < 1.0 NG/ML (<3.6); CPK CREATINE PHOSPHOKINASE 69 U/L (26-192); CREATININE FOR GFR 0.89 MG/DL (0.55-1.30); FREE T4 1.68 NG/DL (0.76-1.46); GLOMERULAR FILTRATION RATE > 60.0 (>39); GLUCOSE, FASTING 163 MG/DL (70-100); MAGNESIUM LEVEL 1.9 MG/DL (1.8-2.4); MB/CK RELATIVE INDEX 1.45 (< OR =4); POTASSIUM SERUM 5.3 MEQ/L (3.5-5.1); SODIUM LEVEL 140 MEQ/L (136-145); THYROID STIMULATING HORMONE 0.807 uIU/ML (0.358-3.740); TROPONIN I < 0.02 NG/ML (< 0.10)
[2019-05-09] MEDS ORDERED: ATEN100T PO (14:18)
[2019-05-09] MEDS ORDERED: DEXTROSE 50% 50 ML SYRINGE IV PRN (15:00)
[2019-05-09] MEDS ORDERED: GLUCAGON FOR INJ 1 MG VIAL (J1610) SC PRN (15:00)
[2019-05-09] MEDS ORDERED: GLUCOSE 4 GM CHEW TABLET PO PRN (15:00)
[2019-05-09] MEDS ORDERED: ACETAMINOPHEN 500 MG TAB PO PRN (15:15)
[2019-05-09] MEDS: amLODIPine 5 MG TAB PO SCH (15:27)
--- NOTE | 2019-05-09 15:31 | HPE ---
DATE OF ADMISSION: 05/09/2019 PRIMARY CARE PROVIDER: Rose Corral DO at [facility] CHIEF COMPLAINT: Recurrent syncope. HISTORY: Apryl Lindsay is a 79-year-old patient of Dr. Castillo. She has had recurrent syncope for the last 2 weeks. She was just hospitalized 05/01/2019 to 05/03/2019 for acute kidney injury, presented with weakness, dizziness, nausea, vomiting, and presyncopal spells, was found recently to have a large, left lung mass which will be described further below, with an outpatient biopsy scheduled for 05/12/2019. She presents again after having several episodes of syncope today at rest without preceding palpitations, lightheadedness, or other symptoms. Denies any chest pain. She has had no fall or injury from this. The most recent syncopal event occurred when she was just sitting at the kitchen table, where she found herself passed out for an unspecified period of time. She has a large left lung mass. This was recently discovered when she presented to the residency clinic 04/30/[address] Mccracken for hoarseness. Ordered a chest x-ray and a CT of the chest. She had noted that the patient lost 17 pounds, documented on the office scales between 03/02/2019 and 04/30/2019. This is an involuntary weight loss. The patient has a long smoking history and has recently become hoarse. CT scan of the chest showed a large mass left lower lobe superior segment ascending from the posterior pleural surface up to the hilum. Extensive mediastinal and bilateral hilar adenopathy. The mass encases a left lower lobe primary artery causing near complete occlusion of the vessel. Nonspecific incidental mass was found in the left breast as well. She had a CT angiogram on 05/07/2019 that showed a known mass. They noted the second order left lower lobe pulmonary artery was nearly completely collapsed due to surrounding encasement but had satisfactory distal enhancement. The patient's past medical history shows hypothyroidism, type 2 diabetes under excellent control, last hemoglobin A1c 5.8%, hypertensive heart disease, long smoking history. SURGICAL HISTORY: Right arm fracture, left arm fracture, hysterectomy, age 28, right knee surgery. MEDICATIONS: - atenolol - chlorthalidone 100-25 one daily - lisinopril 40 mg daily - amlodipine 5 mg daily - levothyroxine 125 mcg daily - metformin 850 mg twice a day - glipizide 5 mg daily ALLERGIES: PENICILLIN and lizy. SOCIAL HISTORY: She is a lifelong smoker, started as a teenager, quit 03/2019. No alcohol. Lives by herself. REVIEW OF SYSTEMS: Unexplained weight loss as above. No hemoptysis. No pleuritic pain. No fever or chills. No polyuria or polydipsia. PHYSICAL EXAMINATION: Vital signs: Blood pressure was 165/77, pulse 65, respiratory rate 18, 98% oxygen saturation on room air, afebrile. General appearance: Alert, conversant, in no distress. She is forceful when she speaks. Pupils are equal, round, reactive to light. Tympanic membranes (TMs) and oropharynx benign. Neck: No masses. Lungs: Decreased breath sounds left side compared to the right. Heart: Regular rhythm, no murmur. Abdomen: Soft, nontender, no masses. Extremities: Without clubbing, cyanosis, or edema. Normal and equal strength, reflexes, sensation. I did not test her gait. LABORATORY DATA: Electrolytes unremarkable. White count 7.8, hemoglobin 9.7, previous hemoglobin was 10.3. MCV is 105. Platelets 357. TSH normal. Free T4 1.68. TSH was just tested 2 days ago so it is reassuring that it is solidly within normal range over that 48 hour interval. Recent urine culture 04/30/2019 showed Klebsiella. IMPRESSION: 1. Recurrent syncope. It seems though it would have to be related to the lung mass perhaps causing vasopressor syncope or an arrhythmia. She will be admitted to a telemetry bed. I have ordered cardiac enzymes. Echocardiogram has been ordered. Consultation will be placed for thoracic surgery as well as pulmonology. Patient has a biopsy scheduled for 05/12/2019. 2. Macrocytic anemia. Check B12, folate, and free kappa/lambda light chains and flow cytometry. Possibility of lymphoma is present. 3. Type 2 diabetes. Hold her metformin and glipizide for now. Sliding scale insulin with coverage based upon protocol. Her diabetes is under excellent control. She will probably not need to continue coverage for long after admission. 4. Hypertensive heart disease. Continue her current amlodipine 5 mg daily, atenolol-chlorthalidone 100-25 daily. Hold her lisinopril as she recently had acute kidney injury. 5. Hypothyroidism. Continue current dose of levothyroxine. Case has been discussed with Dr. Andres Salmeron and communicated with Dr. Patino as well.
[2019-05-09 16:55] VITALS: BP 180/80
[2019-05-09] MEDS ORDERED: SLF 3 ML SYR IV PRN (17:00)
[2019-05-09] MEDS: HumaLOG INSULIN (NovoLOG) PER UNIT SC SCH ×2 (17:30→20:33)
--- NOTE | 2019-05-09 18:50 | HPE ---
DATE OF ADMISSION: 05/09/2019 ADDENDUM: Code status was discussed. Patient is a FULL CODE. Deep venous thrombosis (DVT) prophylaxis will be provided with mechanical sequential thromboembolitic deterrents (TEDs). I am avoiding pharmacologic anticoagulant at this point, as the patient might end up getting a lung biopsy tomorrow and she is at high risk of hemoptysis exsanguination due to location of the lung mass. I think it would be most prudent to use mechanical DVT prophylaxis.
[2019-05-09] MEDS ORDERED: amLODIPine 5 MG TAB PO ONE (19:00)
[2019-05-09 20:00] VITALS: BP 141/67
[2019-05-09 21:38] LABS: CK-MB VALUE MASS < 1.0 NG/ML (<3.6); CPK CREATINE PHOSPHOKINASE 28 U/L (26-192); MB/CK RELATIVE INDEX 3.57 (< OR =4); TROPONIN I < 0.02 NG/ML (< 0.10)
[2019-05-09] MEDS: SLF 3 ML SYR IV SCH (22:14)
[2019-05-10] VITALS (14 sets, daily range): BP systolic 72–154; BP diastolic 48–87
[2019-05-10 05:34] LABS: HEMATOCRIT 28.9 % (36.0-47.0); HEMOGLOBIN 9.5 g/dl (12.0-15.5); MEAN CORPUSCULAR HEMOGLOBIN 34.1 pg (27.0-33.0); MEAN CORPUSCULAR HGB CONC 32.9 g/dl (32.0-36.5); MEAN CORPUSCULAR VOLUME 103.6 fl (80.0-96.0); PLATELET COUNT, AUTOMATED 373 10^3/uL (150-450); RED BLOOD COUNT 2.79 10^6/uL (4.00-5.40); WHITE BLOOD COUNT 8.4 10^3/uL (4.0-10.0)
[2019-05-10 06:06] LABS: BLOOD UREA NITROGEN 13 MG/DL (7-18); CALCIUM LEVEL 8.8 MG/DL (8.8-10.2); CARBON DIOXIDE LEVEL 27 MEQ/L (21-32); CHLORIDE LEVEL 107 MEQ/L (98-107); CK-MB VALUE MASS < 1.0 NG/ML (<3.6); CPK CREATINE PHOSPHOKINASE 26 U/L (26-192); CREATININE FOR GFR 0.81 MG/DL (0.55-1.30); GLOMERULAR FILTRATION RATE > 60.0 (>39); GLUCOSE, FASTING 97 MG/DL (70-100); MB/CK RELATIVE INDEX 3.85 (< OR =4); POTASSIUM SERUM 4.5 MEQ/L (3.5-5.1); SODIUM LEVEL 141 MEQ/L (136-145); TROPONIN I < 0.02 NG/ML (< 0.10)
[2019-05-10] MEDS: LEVOTHYROXINE 125MCG TABLET (0.125MG) PO SCH (06:07)
[2019-05-10] MEDS: SLF 3 ML SYR IV SCH ×3 (06:07→21:21)
--- NOTE | 2019-05-10 07:10 | CR ---
DATE OF CONSULTATION: 05/09/2019 Miss Lindsay is seen at the request of Dr. Zarate for a lung mass and mediastinal lymphadenopathy along with syncope. HISTORY OF PRESENT ILLNESS: This patient is a 79-year-old white female whose story starts about last February when she developed an upper respiratory tract infection manifested by rhinorrhea and a cough. She did not have fever or chills at that time. The rhinorrhea subsided, the cough persisted and got worse. She produces clear to white sputum. There is no hemoptysis. Throughout the course she has never had any fever, chills or sweats. She also denies chest pain or chest discomfort. She has noticed over the past two months that her voice is getting more hoarse. She states that since February she has lost 50 pounds. She just has not had an appetite. There is no true dysphagia. About a week and a half ago she started to have near fainting spells. She has been in and out of the hospital now twice for syncope. Today she was sitting in a chair after having gone downstairs to visit her neighbor and she all of the sudden felt hot and faint and states that she passed out transiently in the chair. She woke up with nausea and vomiting. It gradually subsided but she again sought medical treatment here. She has undergone a CT angio on 05/07/[address] on 04/30/2019. I will discuss the CT angio under imaging. Nonetheless, it shows a large left sided mass with a large amount of mediastinal lymphadenopathy plus possible cardiac findings. PAST MEDICAL HISTORY: Hypertension. Hypothyroidism. Diabetes. PAST SURGICAL HISTORY: Hysterectomy in the remote past. MEDICATIONS AT HOME: - atenolol 100 mg daily - glipizide 5 mg daily - Synthroid 125 mcg daily - metformin 850 mg by mouth twice a day HABITS: She is a smoker of one pack per day for many years. [place] She does not imbibe alcohol and there are no illicit drugs. 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 TRAVEL HISTORY: She has been to [place], but not to the [facility]. There is no foreign travel. FAMILY HISTORY: Not pertinent to the acute situation. ALLERGIES: 1. PENICILLIN. REVIEW OF SYSTEMS: CONSTITUTIONAL: See HPI, the above significant weight loss. I have indeed actually confirmed with her that she meant 50 and not 15. EYES: Without diplopia. Does wear glasses for driving. Without amaurosis fugax or prior jaundice. NOSE: Without epistaxis. MOUTH: Has her own teeth. PULMONARY: See HPI. CARDIAC: Without tachycardia or palpitations. Without prior myocardial infarctions or intermittent claudication, or peripheral edema. Without orthopnea, without paroxysmal nocturnal dyspnea (PND). GASTROINTESTINAL (GI): Except with her nausea and vomiting today just after her near syncopal spell, no episodes. No diarrhea, constipation. No melena, hematochezia or hematemesis. No abdominal pain. No dysphagia. GENITOURINARY (): Without dysuria, hematuria or prior renal stones. ENDOCRINE: With diabetes and hypothyroidism. NEUROLOGIC: Without paresthesia, paralyses, prior CVAs or seizures. PSYCHIATRIC: Without pathological, anxieties, depressions or psychoses. HEMATOLOGICAL: Without prolonged bleeding times. PHYSICAL EXAMINATION: Well-developed, well-nourished, overweight white female who continually coughs bringing up sputum. Vital signs: Temperature is 98.3 with a heart rate of 68 and in sinus rhythm, respiratory rate of 22, without the use of accessory muscles, who is 98% saturated in room air, blood pressure is 180/80. Head is normocephalic. Eyes shows pupils equal, round, and reactive to light. Extraocular muscles intact. Sclerae nonicteric. Nose without deformity. Mouth shows his mucous membranes to be pink and moist. Lips and commissures are without lesions. Teeth are in good repair. There is no thrush. Neck is supple. There is no jugular venous distention. No subcutaneous emphysema. Trachea is midline. I feel no lymphadenopathy or thyromegaly. She has 2+ carotid upstrokes without bruits. Lungs show equal breath sounds on either side. I hear no wheezes, rhonchi or rales. Percussion note is full to the diaphragm. Cardiac exam does not show any murmurs, clicks, gallops or rubs. I cannot feel her point of maximum impulse (PMI). S1 and S2 are normal. I specifically listened for murmur of aortic stenosis or subaortic stenosis and I could not hear one. Abdomen is soft and nontender. Bowel sounds are positive. There is no hepatomegaly. No costovertebral angle (CVA) tenderness. There are no renal bruits. Extremities still show 1+ pretibial edema with no calf tenderness. No differential swelling of the upper extremities. Skin is warm, dry and perfused without cyanosis or mottling including that of the nail beds and knees. Neurologic shows II-XII intact along with gross motor and gross sensation intact. Gait is not tested. Psychiatric showed her to be awake, alert and oriented times three with appropriate and affect and conversational. Lymphatics show no cervical, supraclavicular or infraclavicular or axillary lymphadenopathy. Pulses show 2+ dorsalis pedis that I can feel through her socks. INVESTIGATIONS: Her white count was 7.8 with a hemoglobin and hematocrit of 9.7 and 29.4, which has been slightly going down from 12.0 and 35.5 on 04/30/2019. It was also noted at that time that she was dehydrated and she was rehydrated. Platelet count is 357 with a differential that shows 67% neutrophils, 20% lymphocytes, 8% monocytes. There are no immature forms, no toxic granulations. Her electrolytes are normal except for a potassium of 5.3 with a BUN and creatinine of 17 and 0.89. On 04/30, her creatinine was 1.6 prior to rehydration with a BUN of 37. Her glucose was 163 with a calcium of 8.6 and a corresponding albumin done on 05/01 of 3.1. AST and ALT were essentially normal on 04/30. Her EKG shows nonspecific ST wave changes. There is no hypertrophy and there are no acute changes. Her CT angio today does not show a pulmonary embolism. She has a large left sided mass extending into the hilum and almost completely constricting the left lower pulmonary artery. There is some reconstitution distally. The mass extends to the chest wall. It does not have an absolute wedge configuration, but it does look as if she has segmental obstruction. She has subcarinal mediastinal lymphadenopathy and very large paratracheal lymphadenopathy on both the right and left. She has paraaortic lymphadenopathy and AP window lymphadenopathy. There is one density that I cannot explain very well in her left ventricle. I can see the outflow tract of the left ventricle and it looks as though this extra tissue is impinging on the outflow tract. I am wondering if this is representing hypertrophic subaortic stenosis, thus causing her syncope. Right ventricle does show some enlargement and she may have a degree of pulmonary hypertension. The inferior vena cava looks on the large size. Her let adrenal has a normal configuration. I may be able to see her right adrenal in the lowest two transverse segments. I do not see liver lesions in that portion of the liver that is visualized on the chest CT. She does not have a pericardial effusion. She looks to have a normal pancreas and a normal spleen. IMPRESSION: 1. Large left sided lower lobe mass encasing the left lower lobe pulmonary artery. 2. Significant and impressive mediastinal lymphadenopathy both paratracheally and subcarinally, also para-aortic. 3. Syncope unknown origin. 4. Possible aortic outflow tract obstruction secondary to subaortic hypertrophy. 5. Diabetes. 6. Hypertension. 7. Hypothyroidism. PLAN AND DISCUSSION: We need to absolutely make a diagnosis. She was scheduled for a needle biopsy on this Friday and I will order one for tomorrow to move up the diagnostic speed. I am probably over interpreting the CT scan, but I do have a suspicion of subaortic hypertrophy and I will also order an echocardiogram as one has not been done. It should be noted that her EKG does not show generalized precordial high voltages, but subaortic hypertrophy can certainly come without EKG evidence of hypertrophy. Alternatively, her syncope can be associated with near occlusion of the pulmonary artery with increased right ventricular pressures and decreased cardiac output. Edited 05/10/2019 @ 0726 [email or web address]
[2019-05-10] MEDS: HumaLOG INSULIN (NovoLOG) PER UNIT SC SCH ×4 (07:30→21:00)
[2019-05-10] MEDS: amLODIPine 5 MG TAB PO SCH (08:52)
[2019-05-10] MEDS ORDERED: ATENOLOL 50 MG TAB PO SCH (09:00)
--- NOTE | 2019-05-10 10:01 | IPN ---
DATE: 05/10/2019 Apryl was seen in progressive care unit (PCU). Appreciate Dr. Salmeron's seeing her last night. CT guided needle biopsy is planned for today. She has no fever, chills, hemoptysis. She has no recurrent syncope. There has been no arrhythmias. PHYSICAL EXAMINATION: Vital signs stable. Blood pressure 143/87, afebrile. 90% oxygen saturation. HEENT: Unremarkable. She is hoarse. Neck: No masses. Lungs: Decreased breath sounds on the left. Heart: Regular rhythm. No murmur. Abdomen: Soft, nontender to masses. No peripheral edema. Normal strength in the arms and legs. LABS: White count 8.4, hemoglobin 9.5, which is stable. Platelets are 373. Sodium 141, potassium 4.5, BUN 13, creatinine 0.8, glucose 97. IMPRESSION: 1. Recurrent syncope I think is probably related to the lung mass. Agree with Dr. Salmeron. 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 She has had no recurrence. There has been no arrhythmias. Will continue telemetry for now. 2. Left lung mass. CT-guided biopsy today. She is not on pharmacologic deep venous thrombosis (DVT) prophylaxis because I am concerned about the risk of massive hemoptysis. 3. Hypertensive heart disease: Continue amlodipine, atenolol. Hold her diuretic and angiotensin converting enzyme inhibitors (KELLEE) inhibitor for now. 4. Diabetes: Her diabetes is under excellent control at home on metformin and glipizide. She is currently on a sliding scale requiring no coverage. If she still is without the need for insulin coverage by tomorrow, I would recommend discontinuing the fingersticks and the coverage. 5. Macrocytic anemia: I have ordered B12, folate, free kappa lambda light chain and a flow cytometry. Ferritin iron and TIBC and reticulocyte counts pending. 6. Hypothyroidism: Continue current dose of levothyroxine. Her TSH was in the normal range.
--- NOTE | 2019-05-10 10:47 | CR ---
DATE OF CONSULTATION: 05/10/2019 ATTENDING PHYSICIAN: Kevin Zarate MD REASON FOR CONSULTATION: Abnormal CT scan. HISTORY OF PRESENT ILLNESS: Ms. Lindsay is a pleasant 79-year-old female who smoked most of her adult life. She has been having issues with hoarseness since around February. She was seen by ears, nose, and throat (ENT). Cerumen impaction was dealt with. She did not have examination of her larynx. She has had progressive difficulties with decreased appetite and weight loss, degree of about 50 pounds. She denies any dysphagia. Further evaluation by primary revealed markedly abnormal CAT scan with large left hilar mass and very impressive mediastinal hilar and peritracheal adenopathy. The mass is extended to the chest wall. She was scheduled for CT-guided needle biopsy as an outpatient. She has had four episodes of syncope, however, and is now admitted. ALLERGIES: Listed are PENICILLIN and CYNTHIA. MEDICATIONS AT HOME: - atenolol 100 mg daily - glipizide 5 mg daily - Synthroid 125 mcg daily - metformin 850 mg by mouth twice a day PAST MEDICAL HISTORY: Hypertension, hypothyroidism, and diabetes. Surgically, she has had a hysterectomy. SOCIAL HISTORY: A pack-a-day smoker for many years. Cut down significantly in March. No occupational or environmental exposure. FAMILY HISTORY: Noncontributory to her current status. REVIEW OF SYSTEMS: As per the history of present illness (HPI). Otherwise, constitutional: Negative for any fevers or chills. HEENT: Unremarkable for blurred or double vision. Pulmonary: As per HPI. Cardiac: Unremarkable for any angina. Gastrointestinal (GI): Significant for decreased appetite. Genitourinary (): Unremarkable for any dysuria or urgency. Neurological: Unremarkable for seizures or strokes. Endocrine: Significant for her diabetes and hypothyroidism. Hematological: Unremarkable for any known bleeding, dyscrasias, or anemias. Allergic and immunological: Unremarkable. Psychiatric: Unremarkable. Musculoskeletal: Unremarkable for any new arthralgias or myalgias. PHYSICAL EXAMINATION: Reveals a pleasant female, in no obvious distress. Temperature 97.9, blood pressure 146 systolic, respiratory rate about 18 and unlabored, heart rate in the 70s with a sinus mechanism. HEENT: Otherwise, generally normocephalic, atraumatic. Pupils react. Sclerae clear. Trachea is in the midline. Chest: Shows decreased breath sound intensity in the left midlung zone. Otherwise, chest is clear. Expansion is symmetric. Cardiac examination: Regular with no gallop. Peripheral pulses palpable. No obvious edema. Abdomen: Soft, nontender, with normoactive bowel sounds. No obvious organomegaly or masses. Extremities: No cyanosis or clubbing. Neurologic: She is awake, alert, and appropriate. Psychiatric: Normal mood and affect. Pulse oximetry is 96% on room air. LABORATORIES: Have all been reviewed and are in the electronic medical record (EMR). CT scan as outlined above, and I cannot at all disagree with the PA report impressions and their recommendations. At this point, I am in full agreement with CT-guided needle biopsy. This from a cardiovascular standpoint the safest, and it looks like there is clearcut tumor against the chest wall. Given its appearance, I worry more about either a lymphoma or small cell. 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 I did discuss this with the patient and her family. She stopped smoking. At some point, will get pulmonary function testing. She will clearly require treatment for whatever process we uncover. I have reviewed Dr. Salmeron's notes and certainly agree that she certainly could have primary cardiac issues as the cause of her syncope. At this point, will proceed as outlined above. I will follow while she is in the hospital and likely in the outpatient setting. Further recommendations will be made in the progress record as new information becomes available.
[2019-05-10] MEDS ORDERED: LIDOCAINE 1% MDV 20ML VIAL As Ordered ONE (11:22)
--- NOTE | 2019-05-10 12:27 | REP ---
Chest x-ray: Single view. History: Post CT guided needle biopsy procedure left lung. Comparison study: May 09, 2019. Findings: There is no evidence of pneumothorax or hydrothorax. A large left perihilar mass is seen and there is evidence of fairly bulky in mediastinal adenopathy. Old healed rib fractures are noted. Impression: No complication identified. Large left perihilar mass and bulky mediastinal lymphadenopathy. Electronically Signed by Kojo Back MD 05/10/2019 12:19 P
[2019-05-10 13:11] LABS: VITAMIN B12 LEVEL 88 PG/ML
[2019-05-10 14:14] LABS: CK-MB VALUE MASS < 1.0 NG/ML (<3.6); CPK CREATINE PHOSPHOKINASE 34 U/L (26-192); MB/CK RELATIVE INDEX 2.94 (< OR =4); TROPONIN I 0.02 NG/ML (< 0.10)
[2019-05-10 14:19] LABS: PERCENT SATURATION 28.3 % (13.2-45.0)
[2019-05-10] MEDS ORDERED: NS 1,000 ML IV ONE (14:20)
--- NOTE | 2019-05-10 14:58 | IPN ---
DATE: 05/10/2019 I was called by the floor for Apryl Lindsay who had a syncopal episode. I was called that she was bradycardic with a heart rate in the 30s, systolic pressure 78. I ordered bolus of saline over the phone and went to see her. Upon my arrival, she was pale, clammy but conversant and had systolic blood pressure of 80s. Her heart rate recovered up to 60. Systolic blood pressure william to 130s and she restored her normal mental status. I consulted Dr. Matias of cardiology. He is aware of the consultation. We discussed the case. He is aware that the patient's lung mass is currently not diagnosed. He advises starting amitriptyline as a vagolytic agent. I am also stopping her atenolol.
--- NOTE | 2019-05-10 17:33 | REP ---
CT-GUIDED LEFT LUNG BIOPSY The procedure was performed under the direct supervision of Dr. Back. The patient has a history of a left lung mass seen on a previous CT scan dated 05/07/2019. The risks and benefits of the procedure were explained to the patient and informed consent was obtained. The left lung mass was localized using CT guidance. The skin was prepped and draped in a sterile fashion. 1% lidocaine was used as a local anesthetic. Using CT guidance a 19/20 gauge coaxial needle biopsy system was inserted and advanced into the mass. Nine core biopsy samples were obtained and sent to lab. The patient tolerated the procedure well and there were no immediate complications. After the appropriate amount of monitored convalescence the patient was discharged from the department. Electronically Signed by JEANNIE Wilson 05/10/2019 02:56 P Electronically Signed by Kojo Back MD 05/10/2019 05:25 P
--- NOTE | 2019-05-10 19:53 | IPNPDOC ---
Date Seen The patient was seen on 05/10/19. Progress Note RN called me emergently to discuss prognosis with the patient. Pt had a junctional rhythm with hr in the 30's with sbp 72 at 2:20 pm, but has been stable since. Pt c/o dizziness, diaphoresis at that time, but has been stable since. After review of her case, I have determined that there is no emergent need to discuss her prognosis as the pathology report is unavailable and pending. The morning team will discuss this with her. 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 Matias temporizing measures that we can implement. He did not believe that she is a candidate for a permanent pacemaker due to her malignancy, and suggested theophylline 100 mg bid for now. VS, I&O, 24H, [facility] Vital Signs/I&O Vital Signs Date Time Temp Pulse Resp B/P (MAP) Pulse Ox O2 Delivery O2 Flow Rate FiO2 05/10/19 16:30 98 Room Air 05/10/19 16:00 99.1 68 18 137/66 (89) 2.0 I&O- Last 24 Hours up to 6 AM 05/10/19 06:00 Intake Total 740 ml Output Total 650 ml Balance 90 ml Laboratory Data 24H LABS Laboratory Tests 2 05/09/19 20:31: Bedside Glucose (Misc Panel) 137H 05/09/19 20:59: Total Creatine Kinase 28, Creatine Kinase MB < 1.0, Creatine Kinase MB Relative Index 3.57, Troponin I < 0.02 05/10/19 05:00: Total Creatine Kinase 26, Creatine Kinase MB < 1.0, Creatine Kinase MB Relative Index 3.85, Troponin I < 0.02, Nucleated Red Blood Cells % (auto) 0.0, Anion Gap 7L, Glomerular Filtration Rate > 60.0, Calcium Level 8.8 05/10/19 05:01: 05/10/19 12:43: Bedside Glucose (Misc Panel) 103 05/10/19 13:05: Reticulocyte # (auto) 50.3, Percent Reticulocyte Count 1.8H, Reticulocyte Hemoglobin Equivalent 43.3H, Iron Level 71, Total Iron Binding Capacity 251, Transferrin % Saturation 28.3, Ferritin 97, Total Creatine Kinase 34, Creatine Kinase MB < 1.0, Creatine Kinase MB Relative Index 2.94, Troponin I 0.02 05/10/19 14:17: Bedside Glucose (Misc Panel) 105 05/10/19 17:25: Bedside Glucose (Misc Panel) 167H CBC/BMP Laboratory Tests 05/10/19 05:00 MILA ROMO MD May 10, 2019 19:53
--- NOTE | 2019-05-10 20:46 | ECHO ---
DATE OF PROCEDURE: 05/10/2019 REFERRING PHYSICIAN: Dr. Amanda Fraire and Dr. Andres Salmeron INDICATION: Syncope. Height 170 cm, weight 76 kg. DIMENSIONS: IVS: 0.9 LV: 5.3 LVPW: 1.1 LA: 3.7 Aorta: 2.8 RV: 3.3 Left atrial volume index: 25 IVC: 1.3 Mitral E wave velocity: 77 A wave: 79 E prime septal: 5.6 E prime lateral: 7.5 FINDINGS: The study is of acceptable technical quality. The patient is in sinus rhythm. Left ventricle is normal size and systolic function with estimated left ventricular ejection fraction (LVEF) 60-65%. No segmental wall motion abnormalities are appreciated. Right ventricle also appears normal. Both atria appear normal. Aortic valve is minimally sclerotic but has three cusps and preserved mobility. Mitral, tricuspid and pulmonic valves appear normal. Trivial pericardial effusion is noted. Inferior vena cava is normal size. Aortic root appeared normal. Aortic arch and abdominal aorta were not well seen. Doppler interrogation: No aortic stenosis or insufficiency. Trace mitral and tricuspid insufficiency. Trace pulmonic insufficiency. Mitral inflow pattern and tissue Doppler imaging of mitral annulus revealed grade 1 diastolic dysfunction. CONCLUSIONS: 1. Study is of acceptable technical quality. 2. Normal left ventricular (LV) size and systolic function, grade 1 diastolic dysfunction. 3. No significant valvular disease. 4. Likely normal central venous pressure. 5. Unable to estimate pulmonary artery pressure but no signs to suggest pulmonary hypertension. COMMENT: Subacute bacterial endocarditis (SBE) prophylaxis is not recommended. No findings to explain syncopal event.
[2019-05-10] MEDS: THEOPHYLLINE (THEO-24) 100MG SR **CAPSULE PO SCH (21:21)
[2019-05-10] MEDS: AMITRIPTYLINE 25 MG TAB PO SCH (21:21)
--- NOTE | 2019-05-10 21:53 | ECGEPIP ---
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
[2019-05-11] VITALS: BP 144/74
[2019-05-11 04:00] VITALS: BP 160/77
[2019-05-11 05:41] LABS: HEMATOCRIT 29.2 % (36.0-47.0); HEMOGLOBIN 9.8 g/dl (12.0-15.5); MEAN CORPUSCULAR HEMOGLOBIN 34.6 pg (27.0-33.0); MEAN CORPUSCULAR HGB CONC 33.6 g/dl (32.0-36.5); MEAN CORPUSCULAR VOLUME 103.2 fl (80.0-96.0); PLATELET COUNT, AUTOMATED 343 10^3/uL (150-450); RED BLOOD COUNT 2.83 10^6/uL (4.00-5.40); WHITE BLOOD COUNT 9.2 10^3/uL (4.0-10.0)
[2019-05-11] MEDS: LEVOTHYROXINE 125MCG TABLET (0.125MG) PO SCH (06:00)
[2019-05-11] MEDS: SLF 3 ML SYR IV SCH ×3 (06:01→22:04)
[2019-05-11 06:07] LABS: BLOOD UREA NITROGEN 12 MG/DL (7-18); CALCIUM LEVEL 8.9 MG/DL (8.8-10.2); CARBON DIOXIDE LEVEL 26 MEQ/L (21-32); CHLORIDE LEVEL 107 MEQ/L (98-107); CREATININE FOR GFR 0.73 MG/DL (0.55-1.30); GLOMERULAR FILTRATION RATE > 60.0 (>39); GLUCOSE, FASTING 123 MG/DL (70-100); POTASSIUM SERUM 3.8 MEQ/L (3.5-5.1); SODIUM LEVEL 140 MEQ/L (136-145)
[2019-05-11 08:00] VITALS: BP 156/77
[2019-05-11] MEDS: THEOPHYLLINE (THEO-24) 100MG SR **CAPSULE PO SCH ×2 (08:42→21:35)
[2019-05-11] MEDS: HumaLOG INSULIN (NovoLOG) PER UNIT SC SCH ×4 (08:42→21:00)
[2019-05-11] MEDS: amLODIPine 5 MG TAB PO SCH (08:43)
[2019-05-11 12:00] VITALS: BP 140/80
[2019-05-11 16:00] VITALS: BP 128/70
--- NOTE | 2019-05-11 16:13 | IPNPDOC ---
Date Seen The patient was seen on 05/11/19. Progress Note SUBJECTIVE: 79-year-old female with past medical history diabetes, hypertension, hypothyroidism, was admitted for syncope, found to have a large left lung mass with mediastinal lymphadenopathy. She underwent CT-guided lung biopsy yesterday, preliminary reports, concerning for small cell carcinoma. Plan of care discussed with patient, she wishes to remain full code and get complete treatment, all of patient's and family's questions were answered. She has no complaints at this time, denies any shortness of breath, chest pain, nausea, vomiting, abdominal pain or diarrhea. She does continue to have a dry cough. Of note, patient had multiple episodes of bradycardia and hypotension yesterday, heart rate as low as in the 30s and SBP in the 70s, case was discussed with cardiology over the phone who recommended theophylline, no further episodes since. I also spoke with Dr. Matias from cardiology today who states that he has nothing further to offer the patient and she is not a candidate for pacemaker given her prognosis. 10 point review of system was negative except for above PHYSICAL EXAMINATION: VITAL SIGNS: Please see below. GENERAL: No distress HEENT: Normocephalic, atraumatic, moist mucous membranes NECK: Supple CARDIOVASCULAR EXAMINATION: S1, S2, no murmurs RESPIRATORY EXAMINATION: Diminished on the left side, scattered rhonchi ABDOMINAL EXAMINATION: Soft, nontender, nondistended, positive bowel sounds EXTREMITIES: Range of motion intact SKIN: No rash NEUROLOGICAL EXAMINATION: Alert and oriented 3, no focal deficits PSYCHIATRIC EXAMINATION: Calm and cooperative LABORATORY DATA, IMAGING STUDIES, MICROBIOLOGY: Please see below. Echocardiogram: Normal EF, no significant pathology identified. DVT prophylaxis ordered?: Yes ASSESSMENT AND PLAN: 79-year-old female with past medical history of hypertension, diabetes and hypothyroidism who was admitted for syncope, found to have large lung mass status post biopsy, concerning for small cell lung cancer. PROBLEMS: 1. Lung mass: . Status post CT-guided lung biopsy, preliminary report concerning for small cell lung cancer, case discussed with thoracic surgery, cardiology and oncology. Oncology to see the patient later today, possible inpatient chemotherapy. 2. Bradycardia/hypotension. Thought to be vasovagal, TTE within normal limits, case discussed with cardiology (Dr. Matias), who states the patient is not a candidate for pacemaker given her prognosis and he has nothing meaningful to add to her care at this time. Continue on telemetry monitoring, care discussed with patient and family in detail, wishes to remain full code. Continue amitriptyline and theophylline 3. Diabetes mellitus: Sliding scale insulin with fingersticks before every meal and bedtime. 3. Hypertension:. Continue Norvasc. 4. Hypothyroidism: Continue levothyroxine DVT prophylaxis: Heparin subcutaneous GI prophylaxis: Not needed VS, I&O, 24H, Fishbone Vital Signs/I&O Vital Signs Date Time Temp Pulse Resp B/P (MAP) Pulse Ox O2 Delivery O2 Flow Rate FiO2 05/11/19 12:00 97.7 83 20 140/80 (100) 96 Room Air 05/10/19 16:00 2.0 I&O- Last 24 Hours up to 6 AM 05/11/19 05:59 Intake Total 1200 ml Output Total 750 ml Balance 450 ml Laboratory Data 24H LABS Laboratory Tests 2 05/10/19 17:25: Bedside Glucose (Misc Panel) 167H 05/10/19 20:17: Bedside Glucose (Misc Panel) 203H 05/11/19 05:19: Nucleated Red Blood Cells % (auto) 0.0, Anion Gap 7L, Glomerular Filtration Rate > 60.0, Calcium Level 8.9 05/11/19 12:10: Bedside Glucose (Misc Panel) 134H CBC/BMP Laboratory Tests 05/11/19 05:19 LUCY GUERRERO MD May 11, 2019 16:13
[2019-05-11 20:00] VITALS: BP 132/71
[2019-05-11] MEDS: HEPARIN SOD (PORCINE) 5000 UNITS/ML VIAL SQ SCH (21:34)
[2019-05-11] MEDS: AMITRIPTYLINE 25 MG TAB PO SCH (21:35)
[2019-05-12] VITALS: BP 128/69
[2019-05-12 04:00] VITALS: BP 119/70
[2019-05-12 05:49] LABS: HEMATOCRIT 29.5 % (36.0-47.0); MEAN CORPUSCULAR HEMOGLOBIN 34.7 pg (27.0-33.0); MEAN CORPUSCULAR HGB CONC 33.9 g/dl (32.0-36.5); MEAN CORPUSCULAR VOLUME 102.4 fl (80.0-96.0); PLATELET COUNT, AUTOMATED 343 10^3/uL (150-450); RED BLOOD COUNT 2.88 10^6/uL (4.00-5.40); WHITE BLOOD COUNT 8.1 10^3/uL (4.0-10.0)
[2019-05-12 06:05] LABS: ALBUMIN 2.9 GM/DL (3.2-5.2); ALT/SGPT 13 U/L (12-78); BILIRUBIN,TOTAL 0.6 MG/DL (0.2-1.0); BLOOD UREA NITROGEN 12 MG/DL (7-18); CALCIUM LEVEL 8.7 MG/DL (8.8-10.2); CARBON DIOXIDE LEVEL 26 MEQ/L (21-32); CHLORIDE LEVEL 103 MEQ/L (98-107); CREATININE FOR GFR 0.77 MG/DL (0.55-1.30); GLOMERULAR FILTRATION RATE > 60.0 (>39); GLUCOSE, FASTING 161 MG/DL (70-100); MAGNESIUM LEVEL 1.5 MG/DL (1.8-2.4); PHOSPHORUS LEVEL 3.5 MG/DL (2.5-4.9); POTASSIUM SERUM 3.7 MEQ/L (3.5-5.1); SODIUM LEVEL 135 MEQ/L (136-145); TOTAL PROTEIN 7.1 GM/DL (6.4-8.2)
[2019-05-12] MEDS: SLF 3 ML SYR IV SCH ×3 (06:33→21:16)
[2019-05-12] MEDS: LEVOTHYROXINE 125MCG TABLET (0.125MG) PO SCH (06:33)
[2019-05-12 08:00] VITALS: BP 105/68
[2019-05-12] MEDS: HEPARIN SOD (PORCINE) 5000 UNITS/ML VIAL SQ SCH ×2 (09:10→21:15)
[2019-05-12] MEDS: HumaLOG INSULIN (NovoLOG) PER UNIT SC SCH ×4 (09:10→21:15)
[2019-05-12] MEDS: THEOPHYLLINE (THEO-24) 100MG SR **CAPSULE PO SCH ×2 (09:10→21:14)
[2019-05-12] MEDS: amLODIPine 5 MG TAB PO SCH (09:12)
[2019-05-12] MEDS: CYANOCOBALAMIN 1,000 MCG/ML VIAL (J3420) IM SCH (10:56)
[2019-05-12] MEDS ORDERED: ONDANSETRON 4MG/2ML VIAL (J2405) IV PRN (11:00)
[2019-05-12] MEDS ORDERED: POTASSIUM CHLORIDE 10 MEQ SR TABLET PO ONE (11:00)
[2019-05-12] MEDS: MAG SULF 1GM/100ML (MAG RUN) 1 GM in IV 1 EA IV SCH ×4 (11:21→17:48)
--- NOTE | 2019-05-12 11:53 | IPNPDOC ---
Date Seen The patient was seen on 05/12/19. Progress Note SUBJECTIVE: 79-year-old female with past medical history diabetes, hypertension, hypothyroidism, was admitted for syncope, found to have a large left lung mass with mediastinal lymphadenopathy. She underwent CT-guided lung biopsy yesterday, preliminary reports, concerning for small cell carcinoma. Plan of care discussed with patient, she wishes to remain full code and get complete treatment, all of patient's and family's questions were answered. She has no complaints at this time, denies any shortness of breath, chest pain, nausea, vomiting, abdominal pain or diarrhea. She does continue to have a dry cough. Of note, patient had multiple episodes of bradycardia and hypotension yesterday, heart rate as low as in the 30s and SBP in the 70s, case was discussed with cardiology over the phone who recommended theophylline, no further episodes since. I also spoke with Dr. Matias from cardiology today who states that he has nothing further to offer the patient and she is not a candidate for pacemaker given her prognosis. 05/12/2019 No further episodes of bradycardia, currently asymptomatic, evaluated by oncologist yesterday, plan for chemotherapy today. She denies any short of breath, chest pain, abdominal pain, diarrhea or constipation. She does report a dry cough, unchanged. 10 point review of system was negative except for above PHYSICAL EXAMINATION: VITAL SIGNS: Please see below. GENERAL: No distress HEENT: Normocephalic, atraumatic, moist mucous membranes NECK: Supple CARDIOVASCULAR EXAMINATION: S1, S2, no murmurs RESPIRATORY EXAMINATION: Diminished on the left side, scattered rhonchi ABDOMINAL EXAMINATION: Soft, nontender, nondistended, positive bowel sounds EXTREMITIES: Range of motion intact SKIN: No rash NEUROLOGICAL EXAMINATION: Alert and oriented 3, no focal deficits PSYCHIATRIC EXAMINATION: Calm and cooperative LABORATORY DATA, IMAGING STUDIES, MICROBIOLOGY: Please see below. Echocardiogram: Normal EF, no significant pathology identified. DVT prophylaxis ordered?: Yes ASSESSMENT AND PLAN: 79-year-old female with past medical history of hypertensio n, diabetes and hypothyroidism who was admitted for syncope, found to have large lung mass status post biopsy, concerning for small cell lung cancer. PROBLEMS: 1. Small cell lung cancer Oncology following, inpatient chemotherapy starting today. 2. Bradycardia/hypotension. Thought to be vasovagal, TTE within normal limits, case discussed with cardiology (Dr. Matias), who states the patient is not a candidate for pacemaker given her prognosis and he has nothing meaningful to add to her care at this time. No further episodes, continue telemetry monitoring Continue amitriptyline and theophylline 3. Diabetes mellitus: Sliding scale insulin with fingersticks before every meal and bedtime. 3. Hypertension:. Continue Norvasc. 4. Hypothyroidism: Continue levothyroxine DVT prophylaxis: Heparin subcutaneous GI prophylaxis: Not needed VS, I&O, 24H, Fishbone Vital Signs/I&O Vital Signs Date Time Temp Pulse Resp B/P (MAP) Pulse Ox O2 Delivery O2 Flow Rate FiO2 05/12/19 09:12 85 150/80 05/12/19 08:00 98.7 16 96 Room Air 05/10/19 16:00 2.0 I&O- Last 24 Hours up to 6 AM 05/12/19 06:00 Intake Total 820 ml Output Total 550 ml Balance 270 ml Laboratory Data 24H LABS Laboratory Tests 2 05/11/19 12:10: Bedside Glucose (Misc Panel) 134H 05/11/19 17:42: Bedside Glucose (Misc Panel) 110 05/11/19 19:59: Bedside Glucose (Misc Panel) 172H 05/12/19 05:18: Nucleated Red Blood Cells % (auto) 0.0, Anion Gap 6L, Glomerular Filtration Rate > 60.0, Calcium Level 8.7L, Phosphorus Level 3.5, Magnesium Level 1.5L, Total Bilirubin 0.6, Aspartate Amino Transf (AST/SGOT) 29, Alanine Aminotransferase (ALT/SGPT) 13, Alkaline Phosphatase 79, Total Protein 7.1, Albumin 2.9L, Albumin/Globulin Ratio 0.69L 05/12/19 11:24: Bedside Glucose (Misc Panel) 195H CBC/BMP Laboratory Tests 05/12/19 05:18 LUCY GUERRERO MD May 12, 2019 11:53
[2019-05-12 12:00] VITALS: BP 117/62
[2019-05-12] MEDS ORDERED: FOSAPREPITANT PERIPHERAL LINE 30 MIN INFUSION (PREMIX) IV ONE ×2 (12:00)
[2019-05-12] MEDS ORDERED: OLANZapine 10 MG PO PO ONE (12:00)
[2019-05-12] MEDS ORDERED: dexameTHASONE 10 MG IV IV ONE (12:00)
[2019-05-12] MEDS ORDERED: PALONOSETRON 250 MCG IV IV ONE (12:00)
[2019-05-12] MEDS ORDERED: FOSAPREPITANT PERIPHERAL LINE 30 MIN INFUSION IV ONE ×2 (12:00)
--- NOTE | 2019-05-12 12:22 | ONC.PHACK ---
CHEMO ADMIN CHECKLIST Order Contains Pt ID: Name, Order on Chemo Order Form?: Yes Order Form Includes ALL: Correct Tx Day, Correct Date, Correct Cycle Number Pt ID on Order form Matches: Pt ID on PHA Label Med on Chemo OrderForm Matches: PHA Label, Med Used for Preparation [facility] May 12, 2019 12:21
[2019-05-12] MEDS ORDERED: CARBOPLATIN IV ONE ×2 (13:00)
[2019-05-12] MEDS ORDERED: ETOPOSIDE IV ONE ×2 (13:40)
[2019-05-12] MEDS ORDERED: OVER IV ONE ×2 (13:40)
[2019-05-12 16:00] VITALS: BP 137/63
[2019-05-12 20:00] VITALS: BP 122/64
[2019-05-12] MEDS: AMITRIPTYLINE 25 MG TAB PO SCH (21:15)
[2019-05-13] VITALS: BP 147/72
[2019-05-13 00:06] LABS: FREE KAPPA LIGHT CHAINS SERUM 75.1 mg/L (3.3-19.4); FREE LAMBDA LIGHT CHAINS SERUM 18.3 mg/L (5.7-26.3)
[2019-05-13 04:00] VITALS: BP 128/70
[2019-05-13 05:44] LABS: HEMATOCRIT 31.4 % (36.0-47.0); HEMOGLOBIN 10.6 g/dl (12.0-15.5); MEAN CORPUSCULAR HEMOGLOBIN 34.9 pg (27.0-33.0); MEAN CORPUSCULAR HGB CONC 33.8 g/dl (32.0-36.5); MEAN CORPUSCULAR VOLUME 103.3 fl (80.0-96.0); PLATELET COUNT, AUTOMATED 381 10^3/uL (150-450); RED BLOOD COUNT 3.04 10^6/uL (4.00-5.40); WHITE BLOOD COUNT 8.7 10^3/uL (4.0-10.0)
[2019-05-13] MEDS: LEVOTHYROXINE 125MCG TABLET (0.125MG) PO SCH (05:48)
[2019-05-13] MEDS: SLF 3 ML SYR IV SCH ×3 (05:49→21:12)
[2019-05-13 06:14] LABS: CALCIUM LEVEL 9.5 MG/DL (8.8-10.2); CREATININE FOR GFR 0.99 MG/DL (0.55-1.30); GLOMERULAR FILTRATION RATE 57.9 (>39); MAGNESIUM LEVEL 2.6 MG/DL (1.8-2.4); POTASSIUM SERUM 4.8 MEQ/L (3.5-5.1)
[2019-05-13 08:00] VITALS: BP 132/75
[2019-05-13] MEDS: CYANOCOBALAMIN 1,000 MCG/ML VIAL (J3420) IM SCH (08:23)
[2019-05-13] MEDS: HEPARIN SOD (PORCINE) 5000 UNITS/ML VIAL SQ SCH ×2 (08:23→20:34)
[2019-05-13] MEDS: THEOPHYLLINE (THEO-24) 100MG SR **CAPSULE PO SCH ×2 (08:24→20:34)
[2019-05-13] MEDS: HumaLOG INSULIN (NovoLOG) PER UNIT SC SCH ×4 (08:24→20:23)
[2019-05-13] MEDS: amLODIPine 5 MG TAB PO SCH (08:24)
[2019-05-13 12:00] VITALS: BP 141/72
[2019-05-13] MEDS ORDERED: ETOPOSIDE IV ONE ×2 (14:00)
[2019-05-13] MEDS ORDERED: OVER IV ONE ×2 (14:00)
--- NOTE | 2019-05-13 14:10 | ONC.PHACK ---
CHEMO ADMIN CHECKLIST Order Contains Pt ID: Name, Order on Chemo Order Form?: Yes Order Form Includes ALL: Correct Tx Day, Correct Date, Correct Cycle Number Pt ID on Order form Matches: Pt ID on PHA Label Med on Chemo OrderForm Matches: PHA Label, Med Used for Preparation [facility] May 13, 2019 14:09
[2019-05-13 16:00] VITALS: BP 138/63
--- NOTE | 2019-05-13 17:54 | IPN ---
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 CURRENT THERAPY: Carboplatin/etoposide. Today is day #2, cycle 1. Plan is to complete 3 days of chemotherapy followed by granulocyte colony-stimulating factor (G-CSF) support. A cycle is 21 days. Therefore, treatment typically repeated every 21 days with a total plan for 4-6 cycles. INTERVAL HISTORY: Apryl has tolerated treatment so far very well. She has no complaints tonight and says she is feeling fine. She is insistent she would like to go home soon. I counseled her it may be [place] for her to remain in the hospital for observation during the next few days when she may begin to have side effects related to the chemotherapy. These side effects can include myelosuppression, a general overwhelming fatigue. VITAL SIGNS: Temperature 97.7, blood pressure 138/63, heart rate 89, respiratory rate 20, oxygen saturation 98% on room air. CBC: WBC 8.7, hemoglobin 10.6, hematocrit 31, platelets 381. Chemistries notable for creatinine 19, GFR 57, glucose 237, magnesium slightly high 2.6, albumin 2.9 on yesterday's labs. IMPRESSION: Bulky limited stage small cell lung carcinoma in a non-radiation candidate, day #2, cycle 1 carboplatin/etoposide. Clinical goals are shrinking tumor, possibly controlling the junctional rhythm which may or may not be associated with this patient's cancer, improving breathing, and prolonging life. The patient's daughter, Monica Adams, called me and I had a long conversation with her today. She is the patient's health care proxy, she says, and has many concerns about the patient's treatment. I answered all of her questions to her apparent satisfaction relating to the purpose of chemotherapy, the duration, the number of cycles, what to expect. I counseled there is no hard and fast rule; the patient can decide she would like to discontinue chemotherapy at any point. I clarified that to be curative, chemotherapy must be given in conjunction with radiation for limited stage disease; however, even for limited stage disease with radiation, the cure rate is low and in a 79-year-old woman with other comorbidities palliating with chemotherapy, that non-curative treatment is reasonable. I clarified that current treatment is targeting short-term improvement of both breathing and possibly cardiac status and preventing rapid evolution of potential asphyxiation and/or superior vena cava (SVC) syndrome with untreated central mediastinal bulky adenopathy and large left-sided mass. Monica's concerns appeared to allayed, but she says she wants to keep talking to her mother about goals of care and whether or not to continue in the intermediate run. This is very reasonable. At the bedside, Apryl, however, is quite cheerful, insisting she would like to go home soon. I cautioned her observation may be the best approach in the next few days. She agreed she would consider it. IMPRESSION: Bulky left lung small cell carcinoma with bulky mediastinal adenopathy in the setting of junctional rhythm leading to syncopal events. Day #2, cycle 1 carboplatin/etoposide without immunotherapy or radiation as short-term salvage treatment for symptomatic bulky disease. ECOG performance status currently 2-3. PLAN: 1. Day #3 treatment will be tomorrow. Because of access issues, there is discussion of peripherally inserted central catheter (PICC) placement. MediPort placement could be complicated by the patient's junctional rhythm. 2. The patient is written for either Neulasta to be given on day #4 as an outpatient or filgrastim (Neupogen) to be given daily during persistent inpatient stay days #4 through #14. Should she discharge before that time, she can followup early in our office early next week and received an additional needed G-CSF. 3. As a precaution, tumor lysis labs could be drawn daily. These include uric acid, potassium, phosphorus, and calcium. 3. Also as a precaution, allopurinol could be started 300 mg by mouth daily. This would be a precaution as this patient is not at high risk for tumor lysis syndrome but given age, bulkiness of tumor, it is also not unreasonable to prophylax. I will be out of town as of this evening into Friday evening and returning on Friday. Dr. Deyanira Pelayo and Dr. Eduardo Barron will be sharing call over the next 3 days. They are aware of this patient. MEDICAL ONCOLOGY INPATIENT ADDENDUM NOTE: In my earlier note this evening, I recommended starting allopurinol. There is, however, a significant, severe drug interaction between theophylline, which the patient is on as a rhythm management drug, and allopurinol. Therefore, I did not prescribe the allopurinol and am currently recommending holding off on that. I would recommend, however, following tumor lysis labs daily during the next 5-10 days or throughout the duration of the patient's inpatient care. Addendum dictated: HORACIO 05/13/2019 1733 Addendum transcribed: [email or web address] 05/13/2019 1759
[2019-05-13 20:00] VITALS: BP 150/71
[2019-05-13] MEDS: AMITRIPTYLINE 25 MG TAB PO SCH (20:34)
[2019-05-14] VITALS: BP 130/62
[2019-05-14 04:00] VITALS: BP 140/72
[2019-05-14] MEDS: SLF 3 ML SYR IV SCH ×3 (05:21→21:29)
[2019-05-14] MEDS: LEVOTHYROXINE 125MCG TABLET (0.125MG) PO SCH (05:21)
[2019-05-14 05:25] LABS: HEMATOCRIT 27.3 % (36.0-47.0); MEAN CORPUSCULAR HEMOGLOBIN 34.7 pg (27.0-33.0); MEAN CORPUSCULAR VOLUME 105.4 fl (80.0-96.0); PLATELET COUNT, AUTOMATED 337 10^3/uL (150-450); RED BLOOD COUNT 2.59 10^6/uL (4.00-5.40); WHITE BLOOD COUNT 11.7 10^3/uL (4.0-10.0)
[2019-05-14 05:44] LABS: BLOOD UREA NITROGEN 27 MG/DL (7-18); CALCIUM LEVEL 8.9 MG/DL (8.8-10.2); CARBON DIOXIDE LEVEL 26 MEQ/L (21-32); CHLORIDE LEVEL 107 MEQ/L (98-107); CREATININE FOR GFR 0.87 MG/DL (0.55-1.30); GLOMERULAR FILTRATION RATE > 60.0 (>39); GLUCOSE, FASTING 147 MG/DL (70-100); POTASSIUM SERUM 4.6 MEQ/L (3.5-5.1); SODIUM LEVEL 137 MEQ/L (136-145)
[2019-05-14 08:00] VITALS: BP 118/59
[2019-05-14] MEDS ORDERED: LEVEMIR (INSULIN DETEMIR) 1 UNITS/0.01ML SC ONE (08:00)
[2019-05-14] MEDS: CYANOCOBALAMIN 1,000 MCG/ML VIAL (J3420) IM SCH (09:27)
[2019-05-14] MEDS: THEOPHYLLINE (THEO-24) 100MG SR **CAPSULE PO SCH ×2 (09:28→20:28)
[2019-05-14] MEDS: HEPARIN SOD (PORCINE) 5000 UNITS/ML VIAL SQ SCH ×2 (09:28→20:27)
[2019-05-14] MEDS: HumaLOG INSULIN (NovoLOG) PER UNIT SC SCH ×4 (09:28→19:50)
[2019-05-14] MEDS: amLODIPine 5 MG TAB PO SCH (09:29)
[2019-05-14 12:00] VITALS: BP 143/63
[2019-05-14] MEDS ORDERED: ETOPOSIDE IV ONE ×2 (13:00)
[2019-05-14] MEDS ORDERED: OVER IV ONE ×2 (13:00)
[2019-05-14 13:18] LABS: HEMOGLOBIN 9.7 g/dl (12.0-15.5); MEAN CORPUSCULAR HEMOGLOBIN 35.3 pg (27.0-33.0); MEAN CORPUSCULAR HGB CONC 33.4 g/dl (32.0-36.5); MEAN CORPUSCULAR VOLUME 105.5 fl (80.0-96.0); PLATELET COUNT, AUTOMATED 369 10^3/uL (150-450); RED BLOOD COUNT 2.75 10^6/uL (4.00-5.40); WHITE BLOOD COUNT 10.8 10^3/uL (4.0-10.0)
[2019-05-14] MEDS ORDERED: LIDOCAINE 1% MDV 20ML VIAL As Ordered ONE (14:30)
[2019-05-14 16:00] VITALS: BP 147/64
[2019-05-14] MEDS ORDERED: SODIUM CHLORIDE 0.9% INJ 10 ML SYR IV PRN (16:45)
--- NOTE | 2019-05-14 16:57 | IPNPDOC ---
Date Seen The patient was seen on 05/14/19. Progress Note SUBJECTIVE: 79-year-old female with past medical history diabetes, hypertension, hypothyroidism, was admitted for syncope, found to have a large left lung mass with mediastinal lymphadenopathy. She underwent CT-guided lung biopsy yesterday, preliminary reports, concerning for small cell carcinoma. Plan of care discussed with patient, she wishes to remain full code and get complete treatment, all of patient's and family's questions were answered. She has no complaints at this time, denies any shortness of breath, chest pain, nausea, vomiting, abdominal pain or diarrhea. She does continue to have a dry cough. Of note, patient had multiple episodes of bradycardia and hypotension yesterday, heart rate as low as in the 30s and SBP in the 70s, case was discussed with cardiology over the phone who recommended theophylline, no further episodes since. I also spoke with Dr. Matias from cardiology today who states that he has nothing further to offer the patient and she is not a candidate for pacemaker given her prognosis. 05/12/2019 No further episodes of bradycardia, currently asymptomatic, evaluated by oncologist yesterday, plan for chemotherapy today. She denies any short of breath, chest pain, abdominal pain, diarrhea or constipation. She does report a dry cough, unchanged. 05/14/2019 Patient comfortable bed, without any complaints at this time, no episodes of bradycardia/social rhythm, tolerating chemotherapy any side effects at this time. 10 point review of system was negative except for above PHYSICAL EXAMINATION: VITAL SIGNS: Please see below. GENERAL: No distress HEENT: Normocephalic, atraumatic, moist mucous membranes NECK: Supple CARDIOVASCULAR EXAMINATION: S1, S2, no murmurs RESPIRATORY EXAMINATION: Diminished on the left side, scattered rhonchi ABDOMINAL EXAMINATION: Soft, nontender, nondistended, positive bowel sounds EXTREMITIES: Range of motion intact SKIN: No rash NEUROLOGICAL EXAMINATION: Alert and oriented 3, no focal deficits PSYCHIATRIC EXAMINATION: Calm and cooperative LABORATORY DATA, IMAGING STUDIES, MICROBIOLOGY: Please see below. Echocardiogram: Normal EF, no significant pathology identified. DVT prophylaxis ordered?: Yes ASSESSMENT AND PLAN: 79-year-old female with past medical history of hypertension, diabetes and hypothyroidism who was admitted for syncope, found to have large lung mass status post biopsy, concerning for small cell lung cancer. PROBLEMS: 1. Small cell lung cancer Day 3 of chemotherapy today, also receiving Neupogen, will monitor labs for tumor lysis syndrome, oncology following. PICC line placed today for further outpatient chemotherapy 2. Bradycardia/hypotension. No further episodes, continue telemetry monitoring Continue amitriptyline and theophylline 3. Diabetes mellitus: Sliding scale insulin with fingersticks before every meal and bedtime. 3. Hypertension:. Continue Norvasc. 4. Hypothyroidism: Continue levothyroxine DVT prophylaxis: Heparin subcutaneous GI prophylaxis: Not needed VS, I&O, 24H, Fishbone Vital Signs/I&O Vital Signs Date Time Temp Pulse Resp B/P (MAP) Pulse Ox O2 Delivery O2 Flow Rate FiO2 05/14/19 16:10 94 18 96 Room Air 2.0 05/14/19 12:00 98.2 143/63 (89) I&O- Last 24 Hours up to 6 AM 05/14/19 05:59 Intake Total 1350 ml Output Total 1025 ml Balance 325 ml Laboratory Data 24H LABS Laboratory Tests 2 05/13/19 19:58: Bedside Glucose (Misc Panel) 250H 05/14/19 05:00: Nucleated Red Blood Cells % (auto) 0.0, Anion Gap 4L, Glomerular Filtration Rate > 60.0, Calcium Level 8.9 05/14/19 11:57: Bedside Glucose (Misc Panel) 174H 05/14/19 12:58: Nucleated Red Blood Cells % (auto) 0.0 CBC/BMP Laboratory Tests 05/14/19 05:00 05/14/19 12:58 LUCY GUERRERO MD May 14, 2019 16:57
--- NOTE | 2019-05-14 17:32 | REP ---
Procedure: PICC line insertion with Alvin The procedure was performed under the direct supervision of Dr. Back. The risks and benefits of the procedure were explained to the patient and informed consent was obtained. The right basilic vein was localized using ultrasound guidance. The skin was prepped and draped in a sterile fashion. 2% lidocaine was used as a local anesthetic. Using ultrasound guidance the basilic vein was cannulated and a 0.018 guidewire was inserted and advanced to the SVC using fluoroscopic guidance. The needle was removed and a 5.5 [place] dilator and peel-away sheath was inserted over the guide wire. A 5.5 [place] dual lumen catheter was cut to length of 40 cm. The dilator was removed and the catheter was inserted over the guide wire with the tip ending in the SVC. The peel-away sheath was removed and the catheter was flushed with heparinized saline as per Hospital protocol. The catheter was affixed to the skin and a sterile dressing was applied. The patient tolerated the procedure well and there were no immediate complications. 0.3 minutes of fluoro time was utilized for this procedure. Electronically Signed by JEANNIE Wilson 05/14/2019 04:39 P Electronically Signed by Kojo Back MD 05/14/2019 05:23 P
[2019-05-14] MEDS: SODIUM CHLORIDE 0.9% INJ 10 ML SYR IV SCH (18:00)
--- NOTE | 2019-05-14 18:41 | ONC.PHACK ---
CHEMO ADMIN CHECKLIST Order Contains Pt ID: Name, Order on Chemo Order Form?: Yes Order Form Includes ALL: Correct Tx Day, Correct Date, Correct Cycle Number Pt ID on Order form Matches: Pt ID on PHA Label Med on Chemo OrderForm Matches: PHA Label, Med Used for Preparation [facility] May 14, 2019 18:41
[2019-05-14 20:00] VITALS: BP 134/64
[2019-05-14] MEDS: AMITRIPTYLINE 25 MG TAB PO SCH (20:28)
[2019-05-15] VITALS: BP 112/72
[2019-05-15 04:00] VITALS: BP 161/80
[2019-05-15] MEDS: LEVOTHYROXINE 125MCG TABLET (0.125MG) PO SCH (05:38)
[2019-05-15] MEDS: SODIUM CHLORIDE 0.9% INJ 10 ML SYR IV SCH (05:38)
[2019-05-15] MEDS: SLF 3 ML SYR IV SCH ×2 (05:39→14:01)
[2019-05-15 06:07] LABS: HEMATOCRIT 27.5 % (36.0-47.0); HEMOGLOBIN 9.1 g/dl (12.0-15.5); MEAN CORPUSCULAR HGB CONC 33.1 g/dl (32.0-36.5); MEAN CORPUSCULAR VOLUME 105.8 fl (80.0-96.0); PLATELET COUNT, AUTOMATED 302 10^3/uL (150-450); WHITE BLOOD COUNT 7.3 10^3/uL (4.0-10.0)
[2019-05-15 06:24] LABS: BLOOD UREA NITROGEN 19 MG/DL (7-18); CALCIUM LEVEL 8.7 MG/DL (8.8-10.2); CARBON DIOXIDE LEVEL 26 MEQ/L (21-32); CHLORIDE LEVEL 104 MEQ/L (98-107); CREATININE FOR GFR 0.76 MG/DL (0.55-1.30); GLOMERULAR FILTRATION RATE > 60.0 (>39); GLUCOSE, FASTING 120 MG/DL (70-100); POTASSIUM SERUM 4.2 MEQ/L (3.5-5.1); SODIUM LEVEL 135 MEQ/L (136-145)
[2019-05-15 08:00] VITALS: BP 143/64
[2019-05-15 08:58] LABS: MAGNESIUM LEVEL 1.7 MG/DL (1.8-2.4)
[2019-05-15] MEDS ORDERED: FILGRASTIM 480 MCG/0.8 ML SYRINGE (J1442) SC ONE (09:00)
[2019-05-15] MEDS: HumaLOG INSULIN (NovoLOG) PER UNIT SC SCH ×2 (09:22→12:43)
[2019-05-15 09:23] VITALS: BP 161/80
[2019-05-15] MEDS: amLODIPine 5 MG TAB PO SCH (09:23)
[2019-05-15] MEDS: CYANOCOBALAMIN 1,000 MCG/ML VIAL (J3420) IM SCH (09:23)
[2019-05-15] MEDS: THEOPHYLLINE (THEO-24) 100MG SR **CAPSULE PO SCH (09:23)
[2019-05-15] MEDS: HEPARIN SOD (PORCINE) 5000 UNITS/ML VIAL SQ SCH (09:24)
[2019-05-15 12:00] VITALS: BP 138/67
[2019-05-15] MEDS ORDERED: AMLO5TAB6 PO (12:03)
[2019-05-15] MEDS ORDERED: THEO1CAP2 PO (12:03)
[2019-05-15] MEDS ORDERED: B-122500 PO (12:03)
[2019-05-15] MEDS ORDERED: AMIT25TA PO (12:03)
[2019-05-15] MEDS: MAG SULF 1GM/100ML (MAG RUN) 1 GM in IV 1 EA IV SCH ×2 (12:42→13:58)
--- NOTE | 2019-05-15 13:36 | DS.PDOC ---
Discharge Summary General Date of Admission May 09, 2019 at 14:59 Date of Discharge 05/15/2019 Attending Physician: LUCY GUERRERO MD Discharge Summary PROCEDURES PERFORMED DURING STAY: None. ADMITTING DIAGNOSES: 1. Small cell lung cancer. DISCHARGE DIAGNOSES: 1. Small cell lung cancer. COMPLICATIONS/CHIEF COMPLAINT: Syncope. HISTORY OF PRESENT ILLNESS: 79-year-old female with past medical history of hypertension, diabetes, smoking, was admitted for syncope, found to have left lung mass which turned out to be small cell lung cancer after CT-guided biopsy. She underwent inpatient chemotherapy for 3 days, hemodynamically and clinically stable for discharge with further outpatient treatment per oncology. Patient also had 2-3 episodes of bradycardia/hypotension, likely vasovagal due to location of cancer, discussed case with cardiology who recommended amitriptyline and theophylline, his TTE was performed. Patient was not a candidate for permanent pacemaker due to her prognosis. Patient has not had any further episodes for at least 72 hours, will discharge with outpatient follow-up. Patient is advised to follow up in oncology clinic on Friday for Paula. HOSPITAL COURSE: As above. DISCHARGE MEDICATIONS: Please see below. ALLERGIES: Please see below. PHYSICAL EXAMINATION: VITAL SIGNS: Please see below. GENERAL: No distress HEENT: Normocephalic, atraumatic, moist mucous membranes NECK: Supple CARDIOVASCULAR EXAMINATION: S1, S2, no murmurs RESPIRATORY EXAMINATION: Diminished on the left side, scattered rhonchi ABDOMINAL EXAMINATION: Soft, nontender, nondistended, positive bowel sounds EXTREMITIES: Range of motion intact SKIN: No rash NEUROLOGICAL EXAMINATION: Alert and oriented 3, no focal deficits PSYCHIATRIC EXAMINATION: Calm and cooperative LABORATORY DATA: Please see below. PROGNOSIS: Guarded ACTIVITY: As tolerated. DIET: Cardiac with consistent carbs DISCHARGE PLAN: Please follow-up with oncologist for Neulasta on Friday, PCP in 1-2 weeks. DISPOSITION: Home. DISCHARGE INSTRUCTIONS: 1. As above. DISCHARGE CONDITION: Stable. TIME SPENT ON DISCHARGE: Greater than 35 minutes. Vital Signs/I&Os Vital Signs Date Time Temp Pulse Resp B/P (MAP) Pulse Ox O2 Delivery O2 Flow Rate FiO2 05/15/19 09:23 80 161/80 05/15/19 08:00 94.9 17 100 Room Air 05/14/19 16:10 2.0 I&O- Last 24 Hours up to 6 AM 05/15/19 05:59 Intake Total 1230 ml Output Total 1000 ml Balance 230 ml Laboratory Data Labs 24H Laboratory Tests 2 05/14/19 12:58: Nucleated Red Blood Cells % (auto) 0.0 05/14/19 19:42: Bedside Glucose (Misc Panel) 221H 05/15/19 05:36: Nucleated Red Blood Cells % (auto) 0.0, Anion Gap 5L, Glomerular Filtration Rate > 60.0, Calcium Level 8.7L, Phosphorus Level 3.0, Magnesium Level 1.7L 05/15/19 12:28: Bedside Glucose (Misc Panel) 147H CBC/BMP Laboratory Tests 05/14/19 12:58 05/15/19 05:36 FSBS Laboratory Tests Test 05/14/19 19:42 05/15/19 12:28 Range/Units Bedside Glucose (Misc Panel) 221 147 83-110 MG/DL Discharge Medications Scheduled Amitriptyline HCl (Amitriptyline HCl) 25 Mg Tablet, 25 MG PO QHS Amlodipine Besylate (Amlodipine Besylate) 5 Mg Tablet, 5 MG PO DAILY Atenolol (Atenolol) 100 Mg Tablet, 100 MG PO DAILY, (Reported) Cyanocobalamin (Vitamin B-12) (Vitamin B12) 2,500 Mcg Tablet, 1 TAB PO DAILY Glipizide (Glipizide ER) 5 Mg Tab, 5 MG PO DAILY, (Reported) Levothyroxine Sodium (Levothyroxine Sodium) 125 Mcg Tab, 125 MCG PO DAILY, (Reported) Metformin HCl (Metformin HCl) 850 Mg Tab, 850 MG PO BID, (Reported) Theophylline Anhydrous (Praveen-24) 100 Mg Cap.er.24h, 100 MG PO BID Allergies Coded Allergies: Penicillins (Verified Adverse Reaction, Intermediate, GI upset, 05/09/19) and cross reactors lizy (Verified Adverse Reaction, Intermediate, spice, GI upset, diaphoresis, diarrhea, 05/09/19) LUCY GUERRERO MD May 15, 2019 13:36
[2019-05-16] MEDS ORDERED: FILGRASTIM 480 MCG/0.8 ML SYRINGE (J1442) SC ONE (09:00)
== END 2019-05-15 17:30 | disposition home or self-care (01) | DRG 182 ==
LOC: M ED 11:34 → EDBD 11:34 → M ED INP 14:59 → M PCU 16:52
PROVIDERS: ADMIT Family Medicine; ATTEND Internal Medicine
PROC: 0BBL3ZX Excision of Left Lung, Percutaneous Approach, Diagnostic (ICD-10-PCS; principal; 2019-05-10 16:30)
PROC: 02HV33Z Insertion of Infusion Device into Superior Vena Cava, Percutaneous Approach (ICD-10-PCS; 2019-05-14)
DX: C34.30 Malignant neoplasm of lower lobe, unspecified bronchus or lung (principal); R55 Syncope and collapse; D53.9 Nutritional anemia, unspecified; R00.1 Bradycardia, unspecified; I11.9 Hypertensive heart disease without heart failure; E11.9 Type 2 diabetes mellitus without complications; Z79.899 Other long term (current) drug therapy; Z88.0 Allergy status to penicillin; E03.9 Hypothyroidism, unspecified; F17.200 Nicotine dependence, unspecified, uncomplicated

== ENCOUNTER 2019-05-21 09:14 | Outpatient (CLI) | payer MEDICARE, MEDICAID ==
[~2019-05-21] VITALS: Ht 170.2 cm; Wt 78.5 kg
[2019-05-21] VITALS (7 sets, daily range): BP systolic 111–125; BP diastolic 57–69
[~2019-05-21 09:14] MED LIST changes: +AMIT25TA PO; +AMLO5TAB6 PO; +B-122500 PO; +LEVO250T12 PO; +THEO1CAP2 PO
[2019-05-21] MEDS ORDERED: ACETAMINOPHEN TAB 650MG DOSE (2X325MG) PO ONE (09:30)
[2019-05-21] MEDS ORDERED: FUROSEMIDE 20 MG/2 ML VIAL (J1940) IV ONE (09:30)
[2019-05-21] MEDS ORDERED: diphenhydrAMINE 50 MG CAP PO ONE (09:30)
[2019-05-21] MEDS ORDERED: SODIUM CHLORIDE 0.9% INJ 10 ML SYR IV PRN (13:30)
[2019-05-21] MEDS ORDERED: SODIUM CHLORIDE 0.9% INJ 10 ML SYR IV SCH (18:00)
== END 2019-05-21 13:45 | disposition home or self-care (01) ==
LOC: M INFU 09:14
PROVIDERS: ATTEND Internal Medicine Medical Oncology
DX: D64.9 Anemia, unspecified (principal); Z88.0 Allergy status to penicillin
CPT/HCPCS: 36430; 96374; J1940; P9016

== ENCOUNTER 2019-06-08 09:18 | Inpatient (IN) | payer MEDICARE, MEDICAID ==
[~2019-06-08] VITALS: Ht 162.6 cm; Wt 70.1 kg
[2019-06-08] MEDS ORDERED: NS 500 ML IV ONE ×2 (09:30→11:30)
--- NOTE | 2019-06-08 09:58 | REP ---
Clinical: Chest pain. Weakness. Comparison: 05/09/2019. Findings: Mediastinum and cardiac silhouette are stable. Mass density in the left mid lung zone extending from the left hilum is again identified and similar to prior examination. Mediastinal and hilar adenopathy cannot be excluded. No new acute pulmonary parenchymal process appreciated. No effusion. No pneumothorax. Right PICC line with tip in the SVC. Skeletal structures stable. Impression: Left mid lung mass density essentially unchanged. No new acute process appreciated. Electronically Signed by Avtar Hobbs MD 06/08/2019 09:49 A
[2019-06-08 10:42] LABS: BASO # 0.2 10^3/uL (0.0-0.2); BASO % 1.2 % (0.0-1.0); EOS % 0.1 % (0.0-3.0); HEMATOCRIT 36.9 % (36.0-47.0); HEMOGLOBIN 11.8 g/dl (12.0-15.5); LYMPH # 1.6 10^3/uL (1.5-5.0); LYMPH % 10.9 % (24.0-44.0); MEAN CORPUSCULAR HEMOGLOBIN 33.1 pg (27.0-33.0); MEAN CORPUSCULAR VOLUME 103.4 fl (80.0-96.0); MONO # 1.6 10^3/uL (0.0-0.8); MONO % 10.7 % (0.0-5.0); NEUTROPHILS # 10.6 10^3/uL (1.5-8.5); NEUTROPHILS % 72.3 % (36.0-66.0); PLATELET COUNT, AUTOMATED 523 10^3/uL (150-450); RED BLOOD COUNT 3.57 10^6/uL (4.00-5.40); WHITE BLOOD COUNT 14.6 10^3/uL (4.0-10.0)
[2019-06-08 10:53] LABS: INR 1.18; PROTHROMBIN TIME 14.7 SECONDS (11.8-14.0)
[2019-06-08 10:54] LABS: PARTIAL THROMBOPLASTIN TIME 32.2 SECONDS (25.0-38.4)
[2019-06-08 11:16] LABS: ALBUMIN 2.8 GM/DL (3.2-5.2); ALT/SGPT 28 U/L (12-78); AMYLASE 29 U/L (25-115); BILIRUBIN,DIRECT 0.2 MG/DL (0.0-0.2); BILIRUBIN,TOTAL 0.5 MG/DL (0.2-1.0); BLOOD UREA NITROGEN 15 MG/DL (7-18); CALCIUM LEVEL 9.2 MG/DL (8.8-10.2); CARBON DIOXIDE LEVEL 24 MEQ/L (21-32); CHLORIDE LEVEL 104 MEQ/L (98-107); CK-MB VALUE MASS < 1.0 NG/ML (<3.6); CPK CREATINE PHOSPHOKINASE 21 U/L (26-192); GLOMERULAR FILTRATION RATE 51.3 (>39); GLUCOSE, FASTING 170 MG/DL (70-100); LIPASE 83 U/L (73-393); MB/CK RELATIVE INDEX 4.76 (< OR =4); SODIUM LEVEL 139 MEQ/L (136-145); TROPONIN I < 0.02 NG/ML (< 0.10)
[2019-06-08] MEDS ORDERED: ISOVUE-370 76% 100ML VIAL (Q9967) As Ordered ONE (13:07)
--- NOTE | 2019-06-08 13:46 | REP ---
Clinical: Shortness of breath. History of lung cancer. Technique: Axial contrast enhanced images using pulmonary embolus technique including coronal and sagittal re-formations and MIP sequences. Comparison: 05/07/2019. Findings: Severe mediastinal and hilar adenopathy has markedly increased from prior examination and causes some element of mass effect on the pulmonary arteries extending into the left hilum and proximal left lower lobe. There is satisfactory enhancement of the pulmonary vasculature and no definite pulmonary embolus is appreciated although a subtle pulmonary embolus to the anterior left upper lobe cannot definitively be excluded (images 67 - 73). The lung vigil demonstrate a large multilobulated mass extending from the left hilum to the periphery of the posterior left mid lung zone which is essentially unchanged in size. A new lobulated satellite lesion is identified in the deep right sulcus measuring 2 cm (images 76 - 83). No effusion. No pneumothorax. Tracheobronchial tree is grossly patent. Mass effect by the adenopathy on the mid esophagus is suggested based on current imaging (images 75 - 102). Few stable calcified subcarinal lymph nodes are unchanged. Musculoskeletal structures are intact. Impression: 1. Severe mediastinal and hilar adenopathy markedly increased from prior examination causing narrowing slash attenuation of the pulmonary arteries extending from the left hilum. While no definite acute pulmonary embolus is appreciated, a subtle filling defect in the second order left anterior upper lobe artery cannot be excluded. 2. Large lobulated mass extending from the left hilum to the periphery of the left mid lung zone remains essentially stable. 3. New 2 cm satellite lesion in the deep right posterior sulcus. 4. Cannot exclude pathologic mass effect on in the mid esophagus. Electronically Signed by Avtar Hobbs MD 06/08/2019 01:37 P
[2019-06-08] MEDS ORDERED: NS 1,000 ML IV ONE ×2 (14:45→17:00)
[2019-06-08] MEDS ORDERED: B-122500 PO (16:52)
[2019-06-08] MEDS ORDERED: AMLO5TAB6 PO (16:52)
[2019-06-08] MEDS ORDERED: THEO400T4 PO (16:52)
[2019-06-08] MEDS ORDERED: AMIT25TA PO (16:52)
--- NOTE | 2019-06-08 17:10 | ECGEPIP ---
[facility] - ED Test Date: 2019-06-08 Pat Name: APRYL CANCINO Department: Room: - Gender: Female Electronic [employer] Specialist: UCHE : [id number] Requested By: BENJAMIN Aponte Order Number: [id number] Reading MD: Apryl Nelson Measurements Intervals [place] Rate: 106 P: MS: 0 QRS: -26 QRSD: 82 T: 62 QT: 310 QTc: 413 Interpretive Statements SINUS TACHYCARDIA BORDERLINE LEFT AXIS DEVIATION NSTTW abnormalities ABNORMAL RHYTHM ECG INCREASED RATE 05/10/19 Electronically Signed on 06-08-2019 17:10:10 EST by Apryl Nelson
--- NOTE | 2019-06-08 17:40 | HPEPDOC ---
General Date of Admission 06/08/19 Date of Service: Jun 08, 2019 Chief Complaint The patient is a 79-year-old female admitted with a reason for visit of Weakness. Source: Patient Exam Limitations: No limitations Timing/Duration: Day(s) Severity: Mild Associated Symptoms: Cough, Shortness of breath, Weakness History of Present Illness Patient is 79 years old female with past medical history of stage small-cell lung carcinoma diagnosed 05/2019 with 7.6 cm left lower lobe mass, extension to hilum with bulky subcarinal lymph nodes greater than 5 cm, hypertension, diabetes type 2 presented to the hospital after she developed profound weakness during chemotherapy. Patient states that she has increased weakness for past couple of weeks, today she has increased shortness of breath. In emergency room patient was found to have leukocytosis, tachycardia, lactic acidosis, CTA was done and it can't rule out PE. Also there is questionable infiltrate or lesion in the deep right posterior sulcus. Home Medications Scheduled Amitriptyline HCl (Amitriptyline HCl) 25 Mg Tablet, 25 MG PO QHS, (Reported) Amlodipine Besylate (Amlodipine Besylate) 5 Mg Tablet, 5 MG PO DAILY, (Reported) Cyanocobalamin (Vitamin B-12) (Vitamin B12) 2,500 Mcg Tablet, 2,500 MCG PO DAILY, (Reported) Glipizide (Glipizide ER) 5 Mg Tab, 5 MG PO DAILY, (Reported) Levothyroxine Sodium (Levothyroxine Sodium) 125 Mcg Tab, 125 MCG PO DAILY, (Reported) Metformin HCl (Metformin HCl) 850 Mg Tab, 850 MG PO BID, (Reported) Theophylline Anhydrous (Theophylline) 400 Mg Tab.er.24h, 200 MG PO DAILY, (Reported) Allergies Coded Allergies: Penicillins (Verified Adverse Reaction, Intermediate, GI upset, 05/09/19) and cross reactors lizy (Verified Adverse Reaction, Intermediate, spice, GI upset, diaphoresis, diarrhea, 05/09/19) Past Medical History Medical History small-cell lung carcinoma diagnosed 05/2019 with 7.6 cm left lower lobe mass, extension to hilum with bulky subcarinal lymph nodes greater than 5 cm, hypertension, diabetes type 2 Family History I personally reviewed family history and found not pertinent Social History * Smoker: former Smoker Alcohol: Denies Drugs: denies A-FIB/CHADSVASC A-FIB History Current/History of A-Fib/PAF?: No Current PO Anticoag Therapy: No Review of Systems Constitutional: Reports: Malaise, Weakness Eyes: Denies: Pain ENT: Denies: Head Aches, Ear Pain Skin: Denies: Rash, Lesions Pulmonary: Reports: Dyspnea, Cough Cardiovascular: Denies: Chest Pain, Palpitations Gastrointestinal: Denies: Nausea Genitourinary: Denies: Dysuria, Frequency Hematologic: Denies: Bruising, Bleeding Excessively Endocrine: Denies: Polydipsia Musculoskeletal: Denies: Neck Pain, Back Pain Neurological: Denies: Weakness, Numbness Psych: Reports: Mood Normal Physical Examination General Exam: Positive: Alert, Cooperative Eye Exam: Positive: PERRLA ENT Exam: Positive: Atraumatic Neck Exam: Positive: Supple; Negative: JVD Chest Exam: Positive: Rhonchi; Negative: Clear to auscultation Heart Exam: Positive: Tachycardic Telemetry: Positive: Sinus Abdomen Exam: Positive: Normal bowel sounds Extremity Exam: Negative: Clubbing, Cyanosis Skin Exam: Positive: Nl turgor and temperature Neuro Exam: Positive: Strength at 5/5 X4 ext, Cranial Nerves 3-12 NL Psych Exam: Positive: Mental status NL Vital Signs Vital Signs Date Time Temp Pulse Resp B/P (MAP) Pulse Ox O2 Delivery O2 Flow Rate FiO2 06/08/19 16:33 101 94 Room Air 06/08/19 16:30 162/91 (114) 06/08/19 10:45 20 06/08/19 09:26 96.3 Laboratory Data Labs 24H Laboratory Tests 2 06/08/19 10:22: Immature Granulocyte % (Auto) 4.8H, Neutrophils (%) (Auto) 72.3H, Lymphocytes (%) (Auto) 10.9L, Monocytes (%) (Auto) 10.7H, Eosinophils (%) (Auto) 0.1, Basophils (%) (Auto) 1.2H, Neutrophils # (Auto) 10.6H, Lymphocytes # (Auto) 1.6, Monocytes # (Auto) 1.6H, Eosinophils # (Auto) 0.0, Basophils # (Auto) 0.2, Nucleated Red Blood Cells % (auto) 0.0, Prothrombin Time 14.7H, Prothromb Time International Ratio 1.18, Activated Partial Thromboplast Time 32.2, Anion Gap 11, Glomerular Filtration Rate 51.3, Lactic Acid Level 5.1*H, Calcium Level 9.2, Total Bilirubin 0.5, Direct Bilirubin 0.2, Aspartate Amino Transf (AST/SGOT) 36, Alanine Aminotransferase (ALT/SGPT) 28, Alkaline Phosphatase 109, Total Creatine Kinase 21L, Creatine Kinase MB < 1.0, Creatine Kinase MB Relative Index 4.76H, Troponin I < 0.02, Total Protein 7.0, Albumin 2.8L, Albumin/Globulin Ratio 0.67L, Amylase Level 29, Lipase 83 06/08/19 15:16: Lactic Acid Followup at 4 Hours 4.6*H CBC/BMP Laboratory Tests 06/08/19 10:22 Microbiology Microbiology 06/08/19 Blood Culture, Received Pending 06/08/19 Blood Culture, Received Pending Assessment/Plan Patient is 79 years old female with past medical history of stage small-cell lung carcinoma diagnosed 05/2019 with 7.6 cm left lower lobe mass, extension to hilum with bulky subcarinal lymph nodes greater than 5 cm, hypertension, diabetes type 2 presented to the hospital after she developed profound weakness during chemotherapy. Patient states that she has increased weakness for past couple of weeks, today she has increased shortness of breath. In emergency room patient was found to have leukocytosis, tachycardia, lactic acidosis, CTA was done and it can't rule out PE. Also there is questionable infiltrate or lesion in the deep right posterior sulcus. Problems (1) Sepsis Status: Acute Problem Text: Patient has increase lactic acidosis, leukocytosis, tachycardia Most likely secondary to pneumonia Blood culture, IV fluid Broad-spectrum antibiotics started (2) Shortness of breath Status: Acute Problem Text: Most likely multifactorial, could be attributed to pneumonia, progression of lung cancer and possible pulmonary emboli Continue treatment with oxygen I will start empirically Xarelto for possible PE. According to Wells criteria, she has 5.5 score, moderate risk group, chances of PE 28% Doppler ultrasound of both legs to rule out DVT VQ scan tomorrow (3) Pneumonia Status: Acute Problem Text: Patient has leukocytosis, increased cough CTA chest suspicious for new small infiltrate in the deep right posterior sulcus. Azithromycin IV, ceftriaxone IV Incentive spirometry (4) Weakness Status: Acute Problem Text: Multifactorial Could be attributed to chemotherapy, malignancy, pneumonia PT/OT Palliative care consult placed (5) Small cell lung cancer Status: Acute Problem Text: Follow-up with oncologist in the outpatient settings (6) Lactic acidosis Status: Acute Problem Text: most likely due to tissue hypoperfusion related to malignancy and possible PE Plan / VTE VTE Prophylaxis Ordered?: Yes ANA ROMO DO Jun 08, 2019 17:40
[2019-06-08] MEDS ORDERED: DEXTROSE 50% 50 ML SYRINGE IV PRN (17:45)
[2019-06-08] MEDS ORDERED: GLUCAGON FOR INJ 1 MG VIAL (J1610) SC PRN (17:45)
[2019-06-08] MEDS ORDERED: GLUCOSE 4 GM CHEW TABLET PO PRN (17:45)
[2019-06-08 19:00] VITALS: BP 142/70
[2019-06-08] MEDS: cefTRIAXone SOD 1 GM in D5W MINI-BAG PLUS 50 ML IV SCH (19:09)
[2019-06-08] MEDS: IPRATROPIUM 0.5MG/ALBUTEROL 2.5MG INH SOL UD 3ML (DUONEB)(J7620) INH SCH (20:00)
[2019-06-08 20:45] VITALS: BP 158/70
[2019-06-08] MEDS: HumaLOG INSULIN (NovoLOG) PER UNIT SC SCH (21:00)
[2019-06-08] MEDS: NS 1,000 ML IV SCH (21:29)
[2019-06-08] MEDS: AMITRIPTYLINE 25 MG TAB PO SCH (21:29)
[2019-06-08] MEDS ORDERED: SODIUM CHLORIDE 0.9% INJ 10 ML SYR IV PRN (21:45)
[2019-06-08] MEDS: RIVAROXABAN 15 MG TAB (XARELTO) PO SCH (21:55)
[2019-06-08] MEDS: AZITHROMYCIN INJ 500 MG, VIAL MATE ADAPTER 1 EACH in D5W 250 ML IV SCH (23:42)
[2019-06-09] MEDS: IPRATROPIUM 0.5MG/ALBUTEROL 2.5MG INH SOL UD 3ML (DUONEB)(J7620) INH SCH ×7 (02:51→23:40)
[2019-06-09 05:10] VITALS: BP 103/76
[2019-06-09] MEDS: SODIUM CHLORIDE 0.9% INJ 10 ML SYR IV SCH ×2 (06:00→17:04)
[2019-06-09] MEDS: LEVOTHYROXINE 125MCG TABLET (0.125MG) PO SCH (06:14)
--- NOTE | 2019-06-09 06:35 | REPVR ---
PROCEDURE INFORMATION: Exam: US Duplex Lower Extremity Veins Exam date and time: 06/09/2019 6:22 AM Age: 79 years old Clinical history: Pain; Leg, lower; Bilateral; Additional info: Dvt TECHNIQUE: Imaging protocol: Real-time duplex ultrasound of the Lower Extremities with 2-D bazan scale, color Doppler flow and spectral waveform analysis with image documentation. Complete exam focused on the bilateral lower extremity veins. COMPARISON: No relevant prior studies available. FINDINGS: Right deep veins: Unremarkable. The common femoral, femoral, proximal profunda femoral and popliteal veins are patent without thrombus. Normal Doppler waveforms. Normal compressibility and/or augmentation response. Right superficial veins: Saphenofemoral junction is patent without thrombus. Left deep veins: Unremarkable. The common femoral, femoral, proximal profunda femoral and popliteal veins are patent without thrombus. Normal Doppler waveforms. Normal compressibility and/or augmentation response. Left superficial veins: Saphenofemoral junction is patent without thrombus. Soft tissues: Unremarkable. IMPRESSION: No acute findings. No evidence of deep vein thrombosis. Electronically signed by: Ragini Abrams On 06/09/2019 06:35:08 AM
[2019-06-09] MEDS: HumaLOG INSULIN (NovoLOG) PER UNIT SC SCH ×4 (07:30→20:23)
[2019-06-09 08:05] LABS: HEMATOCRIT 30.9 % (36.0-47.0); HEMOGLOBIN 10.3 g/dl (12.0-15.5); MEAN CORPUSCULAR HGB CONC 33.3 g/dl (32.0-36.5); PLATELET COUNT, AUTOMATED 448 10^3/uL (150-450); RED BLOOD COUNT 3.12 10^6/uL (4.00-5.40); WHITE BLOOD COUNT 13.1 10^3/uL (4.0-10.0)
[2019-06-09 08:20] LABS: BLOOD UREA NITROGEN 7 MG/DL (7-18); CALCIUM LEVEL 8.6 MG/DL (8.8-10.2); CARBON DIOXIDE LEVEL 26 MEQ/L (21-32); CHLORIDE LEVEL 105 MEQ/L (98-107); CREATININE FOR GFR 0.68 MG/DL (0.55-1.30); GLOMERULAR FILTRATION RATE > 60.0 (>39); GLUCOSE, FASTING 96 MG/DL (70-100); POTASSIUM SERUM 3.9 MEQ/L (3.5-5.1); SODIUM LEVEL 138 MEQ/L (136-145)
[2019-06-09] MEDS: NS 1,000 ML IV SCH ×3 (08:32→23:27)
[2019-06-09] MEDS: CYANOCOBALAMIN 500 MCG TAB PO SCH (08:33)
[2019-06-09] MEDS: RIVAROXABAN 15 MG TAB (XARELTO) PO SCH ×2 (08:33→17:04)
[2019-06-09] MEDS: amLODIPine 5 MG TAB PO SCH (09:00)
--- NOTE | 2019-06-09 11:07 | IPNPDOC ---
Text Note Date of Service The patient was seen on 06/09/19. NOTE Subjective: Patient stated that she feels better today, no shortness of breath. Patient denied fever, chills, nausea, vomiting, palpitations, diarrhea or dysuria Objective: Objective:VITAL SIGNS: Please see below. GENERAL APPEARANCE: Well-nourished, well-developed, not in apparent distress HEENT: Normocephalic, atraumatic. Mucous members moist and pink CARDIOVASCULAR: Regular rate and rhythm. No murmurs, rubs or gallops. Radial pulses are intact. There is no lower extremity edema LUNGS: . Diminished lung sounds ABDOMEN: Bowel sounds are hypoactive. Abdomen is soft and nontender. MUSCULOSKELETAL: Range of motion is intact in all 4 extremities NEUROLOGICAL: Cranial nerves II-12 are grossly intact. Speech is not dysarthric Patient is 79 years old female with past medical history of stage small-cell lung carcinoma diagnosed 05/2019 with 7.6 cm left lower lobe mass, extension to hilum with bulky subcarinal lymph nodes greater than 5 cm, hypertension, diabetes type 2 presented to the hospital after she developed profound weakness during chemotherapy. Patient states that she has increased weakness for past couple of weeks, today she has increased shortness of breath. In emergency room patient was found to have leukocytosis, tachycardia, lactic acidosis, CTA was done and it can't rule out PE. Also there is questionable infiltrate or lesion in the deep right posterior sulcus. 1) Sepsis Resolved Patient has increased lactic acidosis, leukocytosis, tachycardia on the admission Leukocytosis improved, patient afebrile Most likely secondary to pneumonia Blood culture negative for 24 hours, IV fluid Continue broad-spectrum antibiotics (2) Shortness of breath Resolved Most likely multifactorial, could be attributed to pneumonia, progression of lung cancer and possible pulmonary emboli Continue treatment with oxygen I started empirically Xarelto for possible PE. According to Wells criteria, she has 5.5 score, moderate risk group, chances of PE 28% Doppler ultrasound of both legs negative for DVT VQ scan (3) Pneumonia Patient has leukocytosis, increased cough CTA chest suspicious for new small infiltrate in the deep right posterior sulcus. Azithromycin IV, ceftriaxone IV Incentive spirometry (4) Weakness Multifactorial Could be attributed to chemotherapy, malignancy, pneumonia PT/OT Palliative care consult placed Small cell lung cancer Follow-up with oncologist in the outpatient settings (6) Lactic acidosis most likely due to tissue hypoperfusion related to malignancy and possible PE Continue to monitor VS,Fishbone, I+O VS, Fishbone, I+O Laboratory Tests 06/09/19 07:37 Vital Signs Date Time Temp Pulse Resp B/P (MAP) Pulse Ox O2 Delivery O2 Flow Rate FiO2 06/09/19 05:10 98.3 51 18 103/76 (85) 95 Room Air I&O- Last 24 Hours up to 6 AM 06/09/19 06:00 Intake Total 3305 ml Output Total 2750 ml Balance 555 ml ANA ROMO DO Jun 09, 2019 11:07
[2019-06-09 11:23] VITALS: BP 141/99
--- NOTE | 2019-06-09 14:12 | REP ---
V/Q SCAN: Following the intravenous administration of 5.4 millicuries technetium 99m tagged MAA and the inhalation of 1 mm technetium 99m DTPA aerosol, multiple images of the lung vigil are obtained in various projections. The right lung is demonstrates no evidence of significant V/Q mismatch with relatively normal perfusion. Left lung demonstrates extensive ventilation and perfusion defects involving the upper and lower lobes. In the left upper lobe, the perfusion defect appears to be larger than the associated ventilation defect and correlating with the CT angiogram of 06/08/2019, there does appear to be pulmonary embolism in the segmental branch of the anterior segment of the left upper lobe. IMPRESSION: Findings compatible with left upper lobe pulmonary embolism. Electronically Signed by Gary Rudd MD 06/09/2019 02:15 P
[2019-06-09 14:41] VITALS: BP 152/101
[2019-06-09 15:21] VITALS: BP 138/70
[2019-06-09] MEDS: cefTRIAXone SOD 1 GM in D5W MINI-BAG PLUS 50 ML IV SCH (18:20)
[2019-06-09 20:09] VITALS: BP 155/83
[2019-06-09] MEDS: AMITRIPTYLINE 25 MG TAB PO SCH (20:22)
[2019-06-09] MEDS: AZITHROMYCIN INJ 500 MG, VIAL MATE ADAPTER 1 EACH in D5W 250 ML IV SCH (21:40)
[2019-06-10] MEDS: IPRATROPIUM 0.5MG/ALBUTEROL 2.5MG INH SOL UD 3ML (DUONEB)(J7620) INH SCH ×3 (04:00→11:17)
[2019-06-10] MEDS: SODIUM CHLORIDE 0.9% INJ 10 ML SYR IV SCH (05:55)
[2019-06-10] MEDS: LEVOTHYROXINE 125MCG TABLET (0.125MG) PO SCH (05:55)
[2019-06-10 06:13] VITALS: BP 138/80
[2019-06-10 07:58] LABS: HEMATOCRIT 30.8 % (36.0-47.0); MEAN CORPUSCULAR HEMOGLOBIN 32.9 pg (27.0-33.0); MEAN CORPUSCULAR HGB CONC 32.5 g/dl (32.0-36.5); MEAN CORPUSCULAR VOLUME 101.3 fl (80.0-96.0); PLATELET COUNT, AUTOMATED 386 10^3/uL (150-450); RED BLOOD COUNT 3.04 10^6/uL (4.00-5.40); WHITE BLOOD COUNT 11.4 10^3/uL (4.0-10.0)
[2019-06-10 08:28] LABS: BLOOD UREA NITROGEN 4 MG/DL (7-18); CALCIUM LEVEL 8.3 MG/DL (8.8-10.2); CARBON DIOXIDE LEVEL 27 MEQ/L (21-32); CHLORIDE LEVEL 106 MEQ/L (98-107); GLOMERULAR FILTRATION RATE > 60.0 (>39); GLUCOSE, FASTING 126 MG/DL (70-100); POTASSIUM SERUM 3.9 MEQ/L (3.5-5.1); SODIUM LEVEL 139 MEQ/L (136-145)
[2019-06-10] MEDS: HumaLOG INSULIN (NovoLOG) PER UNIT SC SCH ×2 (08:45→12:24)
[2019-06-10] MEDS: CYANOCOBALAMIN 500 MCG TAB PO SCH (08:45)
[2019-06-10] MEDS: RIVAROXABAN 15 MG TAB (XARELTO) PO SCH (08:45)
[2019-06-10 08:48] VITALS: BP 142/78
[2019-06-10] MEDS: amLODIPine 5 MG TAB PO SCH (08:48)
[2019-06-10] MEDS: NS 1,000 ML IV SCH (11:55)
[2019-06-10] MEDS ORDERED: XARE15TA PO (12:08)
[2019-06-10] MEDS ORDERED: AZIT500T5 PO (12:08)
--- NOTE | 2019-06-10 18:45 | DS.PDOC ---
Discharge Summary General Date of Admission Jun 08, 2019 at 17:21 Date of Discharge 06/10/19 Primary Care Physician: SRINIVAS WOODSON Discharge Summary PROCEDURES PERFORMED DURING STAY: [None]. ADMITTING DIAGNOSES: Sepsis Shortness of breath Pneumonia Weakness Small cell lung cancer Lactic acidosis DISCHARGE DIAGNOSES: Sepsis Shortness of breath Pneumonia Weakness Small cell lung cancer Lactic acidosis COMPLICATIONS/CHIEF COMPLAINT: Lactic Acidosis Lung Mass Shortness Of Breathe. HISTORY OF PRESENT ILLNESS: Patient is 79 years old female with past medical history of stage small-cell lung carcinoma diagnosed 05/2019 with 7.6 cm left lower lobe mass, extension to hilum with bulky subcarinal lymph nodes greater than 5 cm, hypertension, diabetes type 2 presented to the hospital after she developed profound weakness during chemotherapy. Patient states that she has inc reased weakness for past couple of weeks, today she has increased shortness of breath. In emergency room patient was found to have leukocytosis, tachycardia, lactic acidosis, CTA was done and it can't rule out PE. Also there is questionable infiltrate or lesion in the deep right posterior sulcus. HOSPITAL COURSE: During hospital stay following issue addressed Patient on admission had increased lactic acidosis, leukocytosis, tachycardia Most likely secondary to pneumonia Blood culture negative Patient received azithromycin and ceftriaxone (2) Shortness of breath Status: Acute Problem Text: Most likely multifactorial, could be attributed to pneumonia, progression of lung cancer and pulmonary emboli Continue treatment with oxygen I started empirically Xarelto for PE. Doppler ultrasound of both legs was negative for DVT VQ scan confirmed PE (3) Pneumonia Patient has leukocytosis, increased cough CTA chest suspicious for new small infiltrate in the deep right posterior sulcus. Azithromycin IV, ceftriaxone IV Incentive spirometry (4) Weakness Multifactorial Could be attributed to chemotherapy, malignancy, pneumonia PT/OT Palliative care consult placed (5) Small cell lung cancer Follow-up with oncologist in the outpatient settings (6) Lactic acidosis Status: Acute Problem Text: most likely due to tissue hypoperfusion related to malignancy and possible PE DISCHARGE MEDICATIONS: Please see below. ALLERGIES: Please see below. PHYSICAL EXAMINATION ON DISCHARGE: VITAL SIGNS: Please see below. Objective:VITAL SIGNS: Please see below. GENERAL APPEARANCE: Well-nourished, well-developed, not in apparent distress HEENT: Normocephalic, atraumatic. Mucous members moist and pink CARDIOVASCULAR: Regular rate and rhythm. No murmurs, rubs or gallops. Radial pulses are intact. There is no lower extremity edema LUNGS: . Diminished lung sounds ABDOMEN: Bowel sounds are hypoactive. Abdomen is soft and nontender. MUSCULOSKELETAL: Range of motion is intact in all 4 extremities NEUROLOGICAL: Cranial nerves II-12 are grossly intact. Speech is not dysarthric LABORATORY DATA: Please see below. IMAGING: V/Q SCAN: Following the intravenous administration of 5.4 millicuries technetium 99m tagged MAA and the inhalation of 1 mm technetium 99m DTPA aerosol, multiple images of the lung vigil are obtained in various projections. The right lung is demonstrates no evidence of significant V/Q mismatch with relatively normal perfusion. Left lung demonstrates extensive ventilation and perfusion defects involving the upper and lower lobes. In the left upper lobe, the perfusion defect appears to be larger than the associated ventilation defect and correlating with the CT angiogram of 06/08/2019, there does appear to be pulmonary embolism in the segmental branch of the anterior segment of the left upper lobe. IMPRESSION: Findings compatible with left upper lobe pulmonary embolism. Technique: Axial contrast enhanced images using pulmonary embolus technique including coronal and sagittal re-formations and MIP sequences. Comparison: 05/07/2019. Findings: Severe mediastinal and hilar adenopathy has markedly increased from prior examination and causes some element of mass effect on the pulmonary arteries extending into the left hilum and proximal left lower lobe. There is satisfactory enhancement of the pulmonary vasculature and no definite pulmonary embolus is appreciated although a subtle pulmonary embolus to the anterior left upper lobe cannot definitively be excluded (images 67 - 73). The lung vigil demonstrate a large multilobulated mass extending from the left hilum to the periphery of the posterior left mid lung zone which is essentially unchanged in size. A new lobulated satellite lesion is identified in the deep right sulcus measuring 2 cm (images 76 - 83). No effusion. No pneumothorax. Tracheobronchial tree is grossly patent. Mass effect by the adenopathy on the mid esophagus is suggested based on current imaging (images 75 - 102). Few stable calcified subcarinal lymph nodes are unchanged. Musculoskeletal structures are intact. Impression: 1. Severe mediastinal and hilar adenopathy markedly increased from prior examination causing narrowing slash attenuation of the pulmonary arteries extending from the left hilum. While no definite acute pulmonary embolus is appreciated, a subtle filling defect in the second order left anterior upper lobe artery cannot be excluded. 2. Large lobulated mass extending from the left hilum to the periphery of the left mid lung zone remains essentially stable. 3. New 2 cm satellite lesion in the deep right posterior sulcus. 4. Cannot exclude pathologic mass effect on in the mid esophagus. PROGNOSIS: Guarded ACTIVITY:As tolerated DIET: Regular DISCHARGE PLAN: Follow-up with oncologist and PCP DISPOSITION: 01 Home, Self-Care. ITEMS TO FOLLOWUP ON ON OUTPATIENT: take xarelto indefinitely DISCHARGE CONDITION:Stable TIME SPENT ON DISCHARGE: Greater than 20 minutes. Vital Signs/I&Os Vital Signs Date Time Temp Pulse Resp B/P (MAP) Pulse Ox O2 Delivery O2 Flow Rate FiO2 06/10/19 08:48 142/78 06/10/19 06:13 98.8 98 18 96 Room Air I&O- Last 24 Hours up to 6 AM 06/10/19 06:00 Intake Total 1145 ml Output Total 2450 ml Balance -1305 ml Laboratory Data Labs 24H Laboratory Tests 2 06/09/19 20:04: Bedside Glucose (Misc Panel) 72L 06/10/19 06:16: Bedside Glucose (Misc Panel) 121H 06/10/19 07:35: Nucleated Red Blood Cells % (auto) 0.0, Anion Gap 6L, Glomerular Filtration Rate > 60.0, Calcium Level 8.3L 06/10/19 11:43: Bedside Glucose (Misc Panel) 112H CBC/BMP Laboratory Tests 06/10/19 07:35 FSBS Laboratory Tests Test 06/09/19 20:04 06/10/19 06:16 06/10/19 11:43 Range/Units Bedside Glucose (Misc Panel) 72 121 112 83-110 MG/DL Microbiology Microbiology 06/08/19 Blood Culture - Preliminary, Resulted No Growth after 48 hours. All Specime... 06/08/19 Blood Culture - Preliminary, Resulted No Growth after 48 hours. All Specime... Discharge Medications Scheduled Amitriptyline HCl (Amitriptyline HCl) 25 Mg Tablet, 25 MG PO QHS, (Reported) Amlodipine Besylate (Amlodipine Besylate) 5 Mg Tablet, 5 MG PO DAILY, (Reported) Azithromycin (Azithromycin) 500 Mg Tablet, 500 MG PO DAILY Cyanocobalamin (Vitamin B-12) (Vitamin B12) 2,500 Mcg Tablet, 2,500 MCG PO DAILY, (Reported) Glipizide (Glipizide ER) 5 Mg Tab, 5 MG PO DAILY, (Reported) Levothyroxine Sodium (Levothyroxine Sodium) 125 Mcg Tab, 125 MCG PO DAILY, (Reported) Metformin HCl (Metformin HCl) 850 Mg Tab, 850 MG PO BID, (Reported) Rivaroxaban (Xarelto) 15 Mg Tablet, 15 MG PO BID@0800,1800 Theophylline Anhydrous (Theophylline) 400 Mg Tab.er.24h, 200 MG PO DAILY, (Reported) Allergies Coded Allergies: Penicillins (Verified Adverse Reaction, Intermediate, GI upset, 05/09/19) and cross reactors lizy (Verified Adverse Reaction, Intermediate, spice, GI upset, diaphoresis, diarrhea, 05/09/19) ANA ROMO DO Jun 10, 2019 18:45
[2019-06-12 00:06] LABS: BODY FLUID CULTURE Not Indicated (.); ORGANISM ID Not indicated. (.); SPECIMEN SOURCE Urine (.); URINE STREP PNEUMONIAE ANTIGEN Negative (Negative)
== END 2019-06-10 14:50 | disposition home or self-care (01) | DRG 871 ==
LOC: M ED 09:18 → M ED INP 17:21 → M MS5PR 18:45
PROVIDERS: ADMIT Internal Medicine; ATTEND Internal Medicine
DX: A41.9 Sepsis, unspecified organism (principal); J18.9 Pneumonia, unspecified organism; E87.2 Acidosis; C34.2 Malignant neoplasm of middle lobe, bronchus or lung; E11.9 Type 2 diabetes mellitus without complications; Z79.899 Other long term (current) drug therapy; Z88.0 Allergy status to penicillin; Z91.018 Allergy to other foods